=== PATIENT | female | born 1935 | race Hispanic/Latino ===

== ENCOUNTER 2017-05-29 09:26 | Emergency (ER) | payer MEDICARE, OTHER ==
[2017-05-29 09:31] VITALS: BMI 20.3
[2017-05-29 09:46] VITALS: TEMP 97.7
--- NOTE | 2017-05-29 09:50 | ED PDOC ---
Arrival/HPI - General Historian: Patient, Spouse - History of Present Illness Time/Duration: Other (6 days) Quality: Aching Context: Home - General Chief Complaint: Trauma Time Seen by Provider: 05/29/17 09:46 - History of Present Illness Narrative History of Present Illness (Text): 05/29/17 09:47 This 81 yo female with pmh osteopenia, htn,mild dementia (as per ) presents, to this ED c/o back pain x 6 days. stated patient had hit her left side face during the fall. Patient stated she tripped and fell backwards. Denies [place], diplopia, dysarthria, dysphagia, sob, cp, /GI incontinence, saddle anesthesia, weakness, paresthesias, hip pain, knee pain, neck pain, ankle pain, urinary retention, or abnormal gait. (Nickie Simmons) Past Medical History - Provider Review Nursing Documentation Reviewed: Yes - Past History Past History: Non-Contributing - Infectious Disease Hx of Infectious Diseases: None - Tetanus Immunization Tetanus Immunization: Unknown - Cardiac Hx Cardiac Disorders: Yes Hx Hypertension: Yes - Pulmonary Hx Respiratory Disorders: No - Neurological Hx Neurological Disorder: No - HEENT Hx HEENT Disorder: No - Renal Hx Renal Disorder: No - Endocrine/Metabolic Hx Endocrine Disorders: Yes Hx Hyperthyroidism: Yes - Hematological/Oncological Hx Blood Disorders: No - Integumentary Hx Dermatological Disorder: No - Musculoskeletal/Rheumatological Hx Musculoskeletal Disorders: Yes Hx Falls: Yes (last month and last week) - Gastrointestinal Hx Gastrointestinal Disorders: No - Genitourinary/Gynecological Hx Genitourinary Disorders: No - Psychiatric Hx Psychophysiologic Disorder: No Hx Depression: No Hx Emotional Abuse: No Hx Physical Abuse: No Hx Substance Use: No - Surgical History Hx Appendectomy: Yes - Anesthesia Hx Anesthesia: Yes Hx Anesthesia Reactions: No Hx Malignant Hyperthermia: No - Suicidal Assessment Feels Threatened In Home Enviroment: No Family/Social History - Physician Review Nursing Documentation Reviewed: Yes Family/Social History: No Known Family HX Smoking Status: Never Smoked Hx Alcohol Use: No Hx Substance Use: No Hx Substance Use Treatment: No Allergies/Home Meds Allergies/Adverse Reactions: Allergies No Known Allergies Allergy (Verified 05/29/17 09:31) Home Medications: Home Meds Medication Instructions Recorded Confirmed Amlodipine Besylate [Norvasc] 10 mg PO DAILY 12/05/12 05/29/17 Aspirin [Aspirin Children's] 81 mg PO DAILY 12/05/12 05/29/17 Calcium Carbonate/Vitamin D 1 tab PO DAILY 12/05/12 05/29/17 [Calcium + D 600 mg-200 Iu] Levothyroxine Sodium [Synthroid] 0.1 mg PO DAILY 12/05/12 05/29/17 Multivitamin and Minerals1 1 tab PO DAILY 12/05/12 05/29/17 [Centrum] Simvastatin 20 mg PO DAILY 12/05/12 05/29/17 Lisinopril [Zestril] 2.5 mg PO DAILY 05/29/17 05/29/17 Review of Systems - Review of Systems Constitutional: Normal. absent: Fatigue, Weight Change, Fevers, Night Sweats Eyes: Normal ENT: Normal Respiratory: Normal. absent: SOB, Cough Cardiovascular: Normal. absent: Chest Pain, Palpitations Gastrointestinal: Normal. absent: Abdominal Pain, Nausea, Vomiting Genitourinary Female: Normal. absent: Dysuria, Frequency, Hematuria, Vaginal Bleeding, Vaginal Discharge Musculoskeletal: Back Pain. absent: Arthralgias, Neck Pain, Joint Swelling, Myalgias Skin: Normal. absent: Rash, Laceration Neurological: Normal. absent: Headache, Dizziness, Focal Weakness, Gait Changes , Speech Changes, Facial Droop, Disequilibrium, Seizure Endocrine: Normal Hemo/Lymphatic: Normal Psychiatric: Normal Physical Exam Temperature: Afebrile Blood Pressure: Normal Pulse: Regular Respiratory Rate: Normal Appearance: Positive for: Well-Appearing, Non-Toxic, Comfortable Pain Distress: None Mental Status: Positive for: Alert and Oriented X 3 - Systems Exam Head: Present: Atraumatic, Normocephalic, Other ((+) small left cheek bruise. No raccoon sign. no perdue sign) Pupils: Present: PERRL, Other (no hyphema) Extroacular Muscles: Present: EOMI. No: Entrapment Conjunctiva: Present: Normal Ears: Present: Normal, NORMAL TM, Normal Canal, Other (No hemotympanum). No: Erythema, TM Bulging, TM Perf Mouth: Present: Moist Mucous Membranes Pharnyx: Present: Normal. No: ERYTHEMA, EXUDATE Nose (External): Present: Atraumatic Nose (Internal): Present: Normal Inspection Neck: Present: Normal Range of Motion. No: Meningeal Signs Respiratory/Chest: Present: Clear to Auscultation, Good Air Exchange. No: Respiratory Distress, Accessory Muscle Use Cardiovascular: Present: Regular Rate and Rhythm, Normal S1, S2. No: Murmurs Abdomen: Present: Normal Bowel Sounds. No: Tenderness, Distention, Peritoneal Signs Back: Present: Normal Inspection. No: CVA Tenderness, Midline Tenderness, Paraspinal Tenderness, Pain with Leg Raise Upper Extremity: Present: Normal Inspection, Normal ROM, NORMAL PULSES, Neurovascularly Intact, Capillary Refill < 2s. No: Cyanosis, Edema Lower Extremity: Present: Normal Inspection, NORMAL PULSES, Normal ROM. No: Edema, CALF TENDERNESS Neurological: Present: GCS=15, CN II-XII Intact, Speech Normal, Motor Func Grossly Intact, Normal Sensory Function, Normal Cerebellar Funct, Gait Normal, Memory Normal Skin: Present: Warm, Dry, Normal Color. No: Rashes Psychiatric: Present: Alert, Oriented x 3, Normal Insight, Normal Concentration Vital Signs Temp Pulse Resp BP Pulse Ox 05/29/17 09:39 97.7 F 69 18 117/69 95 Medical Decision Making Re-evaluation Time: 11:56 Reassessment Condition: Re-examined, Improved - Lab Interpretations I have reviewed the lab results: Yes Interpretation: No clinic. lab abnormalty ED Course and Treatment: I was available for consultation during PA evaluation. The chart was reviewed by me, and I agree with disposition. The documented history was done by the physician call box wirer. The documented physical exam was done by the physician call box wirer. The documented procedures were done by the physician call box wirer. (Shaq Martinez) 05/29/17 11:49 Patient came c/o back pain x 6 days after a mechanical fall. Patient denies other complains, except for left facial bruise. is at bedside. CT head was negative. CT L-Spine demonstrates a lumbar spine Fx. Patient prefers out-patient treatment and follow up. I spoke with patient and regarding Tylenol with codeine could cause drowsiness, and put patient at higher risk of following. Patient and stated they will take pain medication when really necessary. (Nickie Simmons) - Lab Interpretations Lab Results: Lab Results 05/29/17 11:05: Urine Color Yellow, Urine Appearance Clear, Urine pH 7.5, Ur Specific [place] 1.010, Urine Protein Negative, Urine Glucose (UA) Negative, Urine Ketones Negative, Urine Blood Small H, Urine Nitrate Negative, Urine Bilirubin Negative, Urine Urobilinogen 0.2, Ur Leukocyte Esterase Negative, Urine RBC Pending, Urine WBC Pending - RAD Interpretation Narrative RAD Interpretations (Text): 05/29/17 11:12 Accession No. : [id number] Patient Name / ID : ALYSSA HUMPHREY / [id number] Exam Date : 05/29/2017 10:09:30 ( Approved ) Study Comment : Sex / Age : F / 81Y Creator : Manpreet Bonilla MD Dictator : Manpreet Bonilla MD Contract Engineer : [employer] Department Chair : Manpreet Bonilla MD Approver2 : Report Date : 05/29/2017 11:04:36 My Comment : PROCEDURE: CT Lumbar Spine without contrast HISTORY: pain s/p fall COMPARISON: None. TECHNIQUE: Axial computed tomography images were obtained of the lumbar spine without the use of intravenous contrast. Coronal and sagittal reformatted images were created and reviewed. Radiation dose: Total exam DLP = 426.65 mGy-cm. This CT exam was performed using one or more of the following dose reduction techniques: Automated exposure control, adjustment of the mA and/or kV according to patient size, and/or use of iterative reconstruction technique. FINDINGS: VERTEBRAE: There is minimal compression deformity of the superior L1 vertebral endplate. There is mild retropulsion of the posterior rim of the superior L1 vertebral endplate, asymmetrically towards the right side. There is no evidence of epidural hemorrhage. The remaining vertebral bodies are maintained in height. There is marked dextroscoliotic curvature of the lumbar spine. There is no listhesis evident. DISCS/SPINAL CANAL/NEURAL FORAMINA: L1-2: Unremarkable. L2-3: Asymmetric narrowing of left side of the disc space in conjunction with scoliotic deformity. No disc bulge or herniation. Unilateral left bony neural foraminal stenosis. L3-4: Asymmetric narrowing of the left side of the intervertebral disc space in conjunction with scoliotic deformity. Mild diffuse disc bulge. No focal herniation. No central spinal stenosis. Unilateral left bony neural foraminal stenosis. L4-5: Asymmetric narrowing of the right side of the intervertebral disc space with extensive subchondral sclerosis asymmetrically towards the right side. Diffuse disc bulge. No focal herniation. No central spinal stenosis. Right bony neural foraminal stenosis. L5-S1: Mild diffuse disc bulge. Disc space asymmetrically narrowed towards the right side. Mild right neural foraminal stenosis. No central spinal stenosis. PARASPINAL SOFT TISSUES: Unremarkable. OTHER FINDINGS: None. IMPRESSION: Mild superior L1 vertebral endplate compression deformity with bony retropulsion not resulting in farhan central spinal stenosis. Indeterminate age but possibly acute. No other fracture. Severe scoliotic deformity. Multilevel disc bulge and neural foraminal stenosis without central spinal stenosis. 05/29/17 11:12 Accession No. : [id number] Patient Name / ID : ALYSSA HUMPHREY / [id number] Exam Date : 05/29/2017 10:05:05 ( Approved ) Study Comment : Sex / Age : F / 81Y Creator : Maulik Owens MD Dictator : Maulik Owens MD Contract Engineer : [employer] Department Chair : Maulik Owens MD Approver2 : Report Date : 05/29/2017 10:25:48 My Comment : PROCEDURE: CT HEAD WITHOUT CONTRAST. HISTORY: head injury/pain COMPARISON: 04/11/2016 TECHNIQUE: Axial computed tomography images were obtained through the head/brain without intravenous contrast. Radiation dose: Total exam DLP = 1112 mGy-cm. This CT exam was performed using one or more of the following dose reduction techniques: Automated exposure control, adjustment of the mA and/or kV according to patient size, and/or use of iterative reconstruction technique. FINDINGS: HEMORRHAGE: No intracranial hemorrhage. BRAIN: No mass effect or edema. Moderate atrophy. Mild chronic microvascular changes VENTRICLES: Unremarkable. No hydrocephalus. CALVARIUM: Unremarkable. PARANASAL SINUSES: Unremarkable as visualized. No significant inflammatory changes. MASTOID AIR CELLS: Unremarkable as visualized. No inflammatory changes. OTHER FINDINGS: None. IMPRESSION: No acute findings (Nickie Simmons) Radiology Orders: 05/29/17 09:46 HEAD W/O CONTRAST [CT] Stat 05/29/17 09:47 LUMBAR SPINE W/O CONTRAST [CT] Stat Disposition/Present on Arrival - Present on Arrival Any Indicators Present on Arrival: No History of DVT/PE: No History of Uncontrolled Diabetes: No Urinary Catheter: No History of Decub. Ulcer: No History Surgical Site Infection Following: None - Disposition Have Diagnosis and Disposition been Completed?: Yes Disposition Time: 12:00 Patient Plan: Discharge - Disposition Diagnosis: Lumbar compression fracture Disposition: HOME/ ROUTINE Condition: GOOD Discharge Instructions (ExitCare): Vertebral Compression Fracture (ED) Additional Instructions: Call private doctor for follow up visit in 1-2 days. Also call Orthopedist for revaluation. Take medication as instructed with food. Return to emergency if symptoms worsen. Prescriptions: Acetaminophen with Codeine [Tylenol with Codeine #3 Tablet] 1 each PO Q6H PRN # 20 tablet PRN Reason: Pain, Severe (8-10) Referrals: Stella Gil MD [Staff Provider] - Follow up with primary Rob Brunson MD [Staff Provider] - Follow up with primary Forms: [email or web address] ([place])
--- NOTE | 2017-05-29 10:27 | CT ---
PROCEDURE: CT HEAD WITHOUT CONTRAST. HISTORY: head injury/pain COMPARISON: 04/11/2016 TECHNIQUE: Axial computed tomography images were obtained through the head/brain without intravenous contrast. Radiation dose: Total exam DLP = 1112 mGy-cm. This CT exam was performed using one or more of the following dose reduction techniques: Automated exposure control, adjustment of the mA and/or kV according to patient size, and/or use of iterative reconstruction technique. FINDINGS: HEMORRHAGE: No intracranial hemorrhage. BRAIN: No mass effect or edema. Moderate atrophy. Mild chronic microvascular changes VENTRICLES: Unremarkable. No hydrocephalus. CALVARIUM: Unremarkable. PARANASAL SINUSES: Unremarkable as visualized. No significant inflammatory changes. MASTOID AIR CELLS: Unremarkable as visualized. No inflammatory changes. OTHER FINDINGS: None. IMPRESSION: No acute findings
--- NOTE | 2017-05-29 11:06 | CT ---
PROCEDURE: CT Lumbar Spine without contrast HISTORY: pain s/p fall COMPARISON: None. TECHNIQUE: Axial computed tomography images were obtained of the lumbar spine without the use of intravenous contrast. Coronal and sagittal reformatted images were created and reviewed. Radiation dose: Total exam DLP = 426.65 mGy-cm. This CT exam was performed using one or more of the following dose reduction techniques: Automated exposure control, adjustment of the mA and/or kV according to patient size, and/or use of iterative reconstruction technique. FINDINGS: VERTEBRAE: There is minimal compression deformity of the superior L1 vertebral endplate. There is mild retropulsion of the posterior rim of the superior L1 vertebral endplate, asymmetrically towards the right side. There is no evidence of epidural hemorrhage. The remaining vertebral bodies are maintained in height. There is marked dextroscoliotic curvature of the lumbar spine. There is no listhesis evident. DISCS/SPINAL CANAL/NEURAL FORAMINA: L1-2: Unremarkable. L2-3: Asymmetric narrowing of left side of the disc space in conjunction with scoliotic deformity. No disc bulge or herniation. Unilateral left bony neural foraminal stenosis. L3-4: Asymmetric narrowing of the left side of the intervertebral disc space in conjunction with scoliotic deformity. Mild diffuse disc bulge. No focal herniation. No central spinal stenosis. Unilateral left bony neural foraminal stenosis. L4-5: Asymmetric narrowing of the right side of the intervertebral disc space with extensive subchondral sclerosis asymmetrically towards the right side. Diffuse disc bulge. No focal herniation. No central spinal stenosis. Right bony neural foraminal stenosis. L5-S1: Mild diffuse disc bulge. Disc space asymmetrically narrowed towards the right side. Mild right neural foraminal stenosis. No central spinal stenosis. PARASPINAL SOFT TISSUES: Unremarkable. OTHER FINDINGS: None. IMPRESSION: Mild superior L1 vertebral endplate compression deformity with bony retropulsion not resulting in farhan central spinal stenosis. Indeterminate age but possibly acute. No other fracture. Severe scoliotic deformity. Multilevel disc bulge and neural foraminal stenosis without central spinal stenosis.
[2017-05-29 11:41] LABS: PH,URINE 7.5 (4.7-8.0); URINE BILIRUBIN NEGATIVE (NEGATIVE); URINE BLOOD SMALL (NEGATIVE); URINE GLUCOSE (UA) NEGATIVE (NEGATIVE); URINE LEUKOCYTE ESTERASE NEGATIVE Leu/uL (NEGATIVE); URINE NITRATE NEGATIVE (NEGATIVE); URINE PROTEIN NEGATIVE mg/dL (<30 mg/dL); URINE UROBILINOGEN 0.2 E.U./dL (<1 E.U./dL)
[2017-05-29 11:45] LABS: URINE APPEARANCE CLEAR (CLEAR); URINE COLOR YELLOW (YELLOW)
[2017-05-29 12:07] LABS: URINE BACTERIA SMALL (NEG); URINE EPITHELIAL CELLS 0 - 2 /hpf (0-5); URINE WBC 0 - 2 /hpf (0-6)
[2017-05-29 22:24] VITALS: BP 124/80; PULSE 70; RESP 16; O2SAT 98
== END 2017-05-29 12:11 | disposition home or self-care (01) ==
LOC: ED 09:26
DX: S32.009A Unspecified fracture of unspecified lumbar vertebra, initial encounter for closed fracture (principal); W01.0XXA Fall on same level from slipping, tripping and stumbling without subsequent striking against object, initial encounter

== ENCOUNTER 2017-11-09 01:08 | Emergency (ER) | payer MEDICARE, OTHER ==
[2017-11-09 01:09] VITALS: BMI 20.3
[2017-11-09 01:26] VITALS: RESP 18; TEMP 97.1
--- NOTE | 2017-11-09 01:30 | ED PDOC ---
Arrival/HPI - General Chief Complaint: Altered Mental Status Time Seen by Provider: 11/09/17 01:20 Historian: Patient - History of Present Illness Narrative History of Present Illness (Text): 11/09/17 01:26 82 year old female, with past medical history of osteopenia, hypertension and mild dementia, presents to the Emergency department via EMS complaining of confusion tonight. Patient states she went out to take a walk in the evening but could not recall her home address to return to. Patient denies similar symptoms in the past. Patient currently denies any complaints. Patient denies any chest pain, shortness of breath, abdominal pain, fevers, chills, nausea, vomiting, diarrhea, trauma or any other complaints. Time/Duration: Prior to Arrival Symptom Onset: Gradual Symptom Course: Unchanged Context: Walking Past Medical History - Provider Review Nursing Documentation Reviewed: Yes - Past History Past History: Non-Contributing - Infectious Disease Hx of Infectious Diseases: None - Tetanus Immunization Tetanus Immunization: Unknown - Reproductive Menopause: Yes - Cardiac Hx Cardiac Disorders: Yes Hx Hypertension: Yes - Pulmonary Hx Respiratory Disorders: No - Neurological Hx Neurological Disorder: No - HEENT Hx HEENT Disorder: No - Renal Hx Renal Disorder: No - Endocrine/Metabolic Hx Endocrine Disorders: Yes Hx Hyperthyroidism: Yes - Hematological/Oncological Hx Blood Disorders: No - Integumentary Hx Dermatological Disorder: No - Musculoskeletal/Rheumatological Hx Musculoskeletal Disorders: Yes Hx Falls: Yes - Gastrointestinal Hx Gastrointestinal Disorders: No - Genitourinary/Gynecological Hx Genitourinary Disorders: No - Psychiatric Hx Psychophysiologic Disorder: No Hx Depression: No Hx Emotional Abuse: No Hx Physical Abuse: No Hx Substance Use: No - Surgical History Hx Appendectomy: Yes - Anesthesia Hx Anesthesia: Yes Hx Anesthesia Reactions: No Hx Malignant Hyperthermia: No - Suicidal Assessment Feels Threatened In Home Enviroment: No Family/Social History - Physician Review Nursing Documentation Reviewed: Yes Family/Social History: No Known Family HX Smoking Status: Never Smoked Hx Alcohol Use: No Hx Substance Use: No Hx Substance Use Treatment: No Allergies/Home Meds Allergies/Adverse Reactions: Allergies No Known Allergies Allergy (Verified 11/09/17 01:20) Home Medications: Home Meds Medication Instructions Recorded Confirmed Amlodipine Besylate [Norvasc] 10 mg PO DAILY 12/05/12 05/29/17 Aspirin [Aspirin Children's] 81 mg PO DAILY 12/05/12 05/29/17 Calcium Carbonate/Vitamin D 1 tab PO DAILY 12/05/12 05/29/17 [Calcium + D 600 mg-200 Iu] Levothyroxine Sodium [Synthroid] 0.1 mg PO DAILY 12/05/12 05/29/17 Multivitamin and Minerals1 1 tab PO DAILY 12/05/12 05/29/17 [Centrum] Simvastatin 20 mg PO DAILY 12/05/12 05/29/17 Lisinopril [Zestril] 2.5 mg PO DAILY 05/29/17 05/29/17 Review of Systems - Physician Review All systems were reviewed & negative as marked: Yes - Review of Systems Constitutional: Normal. absent: Fevers Eyes: Normal ENT: Normal Respiratory: Normal. absent: SOB Cardiovascular: Normal. absent: Chest Pain Gastrointestinal: Normal. absent: Abdominal Pain, Diarrhea, Nausea, Vomiting Genitourinary Female: Normal Musculoskeletal: Normal Skin: Normal Neurological: Normal Endocrine: Normal Hemo/Lymphatic: Normal Psychiatric: Normal Physical Exam Vital Signs Reviewed: Yes Vital Signs Temp Pulse Resp BP Pulse Ox 11/09/17 01:21 97.1 F L 61 18 127/69 99 Temperature: Afebrile Blood Pressure: Normal Pulse: Regular Respiratory Rate: Normal Appearance: Positive for: Well-Appearing, Non-Toxic, Comfortable, Other ( Friendly with repetitive verbalization. ) Pain Distress: None Mental Status: Positive for: Confused (mildly confused ) - Systems Exam Head: Present: Atraumatic, Normocephalic Pupils: Present: PERRL Extroacular Muscles: Present: EOMI Conjunctiva: Present: Normal Mouth: Present: Moist Mucous Membranes Neck: Present: Normal Range of Motion Respiratory/Chest: Present: Clear to Auscultation, Good Air Exchange. No: Respiratory Distress, Accessory Muscle Use Cardiovascular: Present: Regular Rate and Rhythm, Normal S1, S2. No: Murmurs Abdomen: Present: Normal Bowel Sounds. No: Tenderness, Distention, Peritoneal Signs Back: Present: Normal Inspection Upper Extremity: Present: Normal Inspection. No: Cyanosis, Edema Lower Extremity: Present: Normal Inspection. No: Edema Neurological: Present: GCS=15, CN II-XII Intact, Speech Normal Skin: Present: Warm, Dry, Normal Color. No: Rashes Psychiatric: Present: Alert, Normal Insight, Normal Concentration Medical Decision Making ED Course and Treatment: 11/09/17 01:32 Impression: 82 year old female presents to the Emergency department for confusion. Plan: -- Reassess and disposition Progress Notes: - Lab Interpretations Lab Results: 11/09/17 01:49 11/09/17 01:49 Lab Results 11/09/17 01:49: Sodium 140, Potassium 4.1, Chloride 104, Carbon Dioxide 25, Anion Gap 15, BUN 18, Creatinine 0.6 L, Est GFR ( Amer) > 60, Est GFR ( Non-Af Amer) > 60, Random Glucose 96, Calcium 9.4, Total Bilirubin 0.5, AST 26, ALT 27, Alkaline Phosphatase 64, Total Protein 6.9, Albumin 3.8, Globulin 3.0, Albumin/Globulin Ratio 1.3 11/09/17 01:49: WBC 8.0, RBC 4.10, Hgb 12.8, Hct 40.0, MCV 97.6, MCH 31.2, MCHC 32.0, RDW 13.8, Plt Count 223, MPV 11.7 H, Gran % 48.6 L, Lymph % (Auto) 27.8, [place] % (Auto) 21.7 H, Eos % (Auto) 1.7, Baso % (Auto) 0.2, Gran # 3.88, Lymph # 2.2, [place] # 1.7 H, Eos # 0.1, Baso # 0.02, Neutrophils % (Manual) Pending, Lymphocytes % (Manual) Pending, Monocytes % (Manual) Pending - RAD Interpretation Radiology Orders: 11/09/17 01:33 HEAD W/O CONTRAST [CT] Stat - Scribe Statement The provider has reviewed the documentation as recorded by the Scribe Norman Bertrand. All medical record entries made by the Scribe were at my direction and personally dictated by me. I have reviewed the chart and agree that the record accurately reflects my personal performance of the history, physical exam, medical decision making, and the department course for this patient. I have also personally directed, reviewed, and agree with the discharge instructions and disposition. Disposition/Present on Arrival - Present on Arrival Any Indicators Present on Arrival: No History of DVT/PE: No History of Uncontrolled Diabetes: No Urinary Catheter: No History of Decub. Ulcer: No History Surgical Site Infection Following: None - Disposition Have Diagnosis and Disposition been Completed?: Yes Diagnosis: Dementia Disposition: HOME/ ROUTINE Disposition Time: 03:00 Condition: STABLE Additional Instructions: see your doctor to consider further treatment for dementia. Forms: [employer] ([place])
[2017-11-09 02:28] LABS: BASO # 0.02 K/mm3 (0.0-2.0); BASO % 0.2 % (0.0-3.0); EOS # 0.1 (0.0-0.7); EOS % 1.7 % (1.5-5.0); GRAN # 3.88 (1.4-6.5); GRAN % 48.6 % (50.0-68.0); HEMOGLOBIN 12.8 g/dL (12.0-16.0); LYMPH # 2.2 (1.2-3.4); LYMPH % 27.8 % (22.0-35.0); MEAN CELL VOLUME 97.6 fl (80.0-105.0); MEAN CORPUSCULAR HEMOGLOBIN 31.2 pg (25.0-35.0); MEAN PLATELET VOLUME 11.7 fl (7.0-11.0); MONO # 1.7 (0.1-0.6); MONO % 21.7 % (1.0-6.0); PLATELET COUNT 223 10^3/uL (120.0-450.0); RED CELL DISTRIBUTION WIDTH 13.8 % (11.5-14.5)
[2017-11-09 02:32] LABS: ALB/GLOB RATIO 1.3 (1.1-1.8); ALBUMIN 3.8 g/dL (3.0-4.8); ALT/SGPT 27 U/L (7-56); AST/SGOT 26 U/L (14-36); BLOOD UREA NITROGEN 18 mg/dL (7-21); CALCIUM 9.4 mg/dL (8.4-10.5); GFR AFRICAN-AMERICAN > 60; GFR NON-AFRICAN AMERICAN > 60
--- NOTE | 2017-11-09 02:54 | CT ---
EXAM: CT Head Without Intravenous Contrast CLINICAL HISTORY: 82 years old, female; Signs and symptoms; Altered mental status/memory loss; Additional info: AMS TECHNIQUE: Axial computed tomography images of the head/brain without intravenous contrast. All CT scans at this facility use one or more dose reduction techniques, viz.: automated exposure control; ma/kV adjustment per patient size (including targeted exams where dose is matched to indication; i.e. head); or iterative reconstruction technique. Coronal and sagittal reformatted images were created and reviewed. COMPARISON: CT - HEAD W/O CONTRAST 2017-05-29 10:05 FINDINGS: Brain: Moderate atrophy. No intracranial hemorrhage. No mass. Minimal decreased attenuation within periventricular white matter. No definite edema. Ventricles: No hydrocephalus. Bones/joints: No acute fracture. Degenerative changes of temporomandibular joints. Soft tissues: Unremarkable. Vasculature: Minimal atherosclerotic disease of intracranial arteries. Sinuses: Mild mucosal thickening of LEFT maxillary sinus. Scattered minimal mucosal thickening of ethmoid sinuses. RIGHT maxillary retention cyst. Mastoid air cells: No mastoid effusion. Orbits: Unremarkable as visualized. IMPRESSION: 1. Nonspecific white matter changes. Acute infarction may be CT occult within first 24 hours. If a focal deficit persists, consider followup CT or MRI for further evaluation. 2. Incidental/non-acute findings are described above.
[2017-11-09 04:17] LABS: BASOPHIL 1 % (0.0-1.0); LYMPHOCYTE 34 % (22.0-35.0); MONOCYTE 19 % (1.0-6.0); NEUTROPHIL 46 % (50.0-70.0); PLATELET ESTIMATE NORMAL (NORMAL)
[2017-11-09 06:54] VITALS: BP 112/75; PULSE 60; O2SAT 96
== END 2017-11-09 08:42 | disposition home or self-care (01) ==
LOC: ED 01:08
DX: F03.90 Unspecified dementia, unspecified severity, without behavioral disturbance, psychotic disturbance, mood disturbance, and anxiety (principal); I10 Essential (primary) hypertension

== ENCOUNTER 2018-09-23 11:09 | Inpatient (IN) | payer MEDICARE, OTHER ==
[2018-09-23] MEDS ORDERED: Vancomycin 1gm in NS 250ml 1 GM/250 ML BAG IVPB STA (12:33)
[2018-09-23] MEDS ORDERED: Piperacillin/Tazobact 3.375 gm 100 ML IVPB STA (12:33)
[2018-09-23 12:56] LABS: BASO # 0.01 K/mm3 (0.0-2.0); BASO % 0.1 % (0.0-3.0); EOS % 0.3 % (1.5-5.0); GRAN # 6.44 (1.4-6.5); GRAN % 66.7 % (50.0-68.0); HEMOGLOBIN 11.2 g/dL (12.0-16.0); LYMPH # 1.3 (1.2-3.4); LYMPH % 13.8 % (22.0-35.0); MEAN CELL VOLUME 94.2 fl (80.0-105.0); MEAN CORPUSCULAR HEMOGLOBIN 29.6 pg (25.0-35.0); MEAN CORPUSCULAR HGB CONC 31.4 g/dl (31.0-37.0); MEAN PLATELET VOLUME 10.8 fl (7.0-11.0); MONO # 1.8 (0.1-0.6); MONO % 19.1 % (1.0-6.0); RBC 3.79 10^6/uL (3.5-6.1); WHITE BLOOD COUNT 9.7 10^3/uL (4.5-11.0)
[2018-09-23 13:08] LABS: ALB/GLOB RATIO 1.1 (1.1-1.8); ALBUMIN 3.5 g/dL (3.0-4.8); ALT/SGPT 26 U/L (7-56); AST/SGOT 19 U/L (14-36); BLOOD UREA NITROGEN 17 mg/dL (7-21); CALCIUM 9.1 mg/dL (8.4-10.5); GFR NON-AFRICAN AMERICAN > 60
--- NOTE | 2018-09-23 13:29 | ED PDOC ---
Arrival/HPI - General Chief Complaint: Trauma Time Seen by Provider: 09/23/18 11:46 Historian: Patient - History of Present Illness Narrative History of Present Illness (Text): 09/23/18 16:03 83yr old female presents today with 2 day history of right foot pain. pt states she tripped and fell 2 days ago and scrapped the right great toe. pt states since yesterday she noticed redness to the foot and ankle with increasing swelling. pt c/o pain only with palpation. denies numbness, weakness, tingling in the extremity. unsure of last tetanus shot. no medications taken at home. no other complaints. Past Medical History - Provider Review Nursing Documentation Reviewed: Yes - Travel History Have you recently traveled outside [place] w/in the past 3 mons?: No - Past History Past History: Non-Contributing - Infectious Disease Hx of Infectious Diseases: None - Tetanus Immunization Tetanus Immunization: Unknown - Cardiac Hx Cardiac Disorders: Yes Hx Hypertension: Yes - Pulmonary Hx Respiratory Disorders: No - Neurological Hx Neurological Disorder: No - HEENT Hx HEENT Disorder: No - Renal Hx Renal Disorder: No - Endocrine/Metabolic Hx Endocrine Disorders: Yes Hx Hyperthyroidism: Yes - Hematological/Oncological Hx Blood Disorders: No - Integumentary Hx Dermatological Disorder: No - Musculoskeletal/Rheumatological Hx Musculoskeletal Disorders: Yes Hx Falls: Yes - Gastrointestinal Hx Gastrointestinal Disorders: No - Genitourinary/Gynecological Hx Genitourinary Disorders: No - Psychiatric Hx Psychophysiologic Disorder: No Hx Depression: No Hx Emotional Abuse: No Hx Physical Abuse: No Hx Substance Use: No - Surgical History Hx Appendectomy: Yes - Anesthesia Hx Anesthesia: Yes Hx Anesthesia Reactions: No Hx Malignant Hyperthermia: No - Suicidal Assessment Feels Threatened In Home Enviroment: No Family/Social History - Physician Review Nursing Documentation Reviewed: Yes Family/Social History: Unknown Family HX Smoking Status: Never Smoked Hx Alcohol Use: No Hx Substance Use: No Hx Substance Use Treatment: No Allergies/Home Meds Allergies/Adverse Reactions: Allergies No Known Allergies Allergy (Verified 11/09/17 01:20) Home Medications: Home Meds Medication Instructions Recorded Confirmed Calcium Carb/Vit D3/Minerals 1 tab PO DAILY 09/23/18 09/23/18 [Calcium 600+D Plus Minerals Tb] Levothyroxine [Synthroid] 1 tab PO DAILY 09/23/18 09/23/18 Lisinopril [Zestril] 1 tab PO DAILY 09/23/18 09/23/18 Simvastatin [Zocor] 1 tab PO DAILY 09/23/18 09/23/18 amLODIPine [Norvasc] 1 tab PO DAILY 09/23/18 09/23/18 Review of Systems - Review of Systems Constitutional: absent: Fatigue, Fevers Respiratory: absent: SOB, Cough Cardiovascular: absent: Chest Pain, Palpitations Gastrointestinal: absent: Abdominal Pain, Nausea, Vomiting Musculoskeletal: Arthralgias Skin: Cellulitis Neurological: absent: Headache, Dizziness Psychiatric: absent: Anxiety, Depression Physical Exam Vital Signs Reviewed: Yes Vital Signs Temp Pulse Resp BP Pulse Ox 09/23/18 11:15 98.3 F 74 18 119/48 L 96 Temperature: Afebrile Blood Pressure: Normal Pulse: Regular Respiratory Rate: Normal Appearance: Positive for: Well-Appearing, Non-Toxic, Comfortable Pain Distress: None Mental Status: Positive for: Alert and Oriented X 3 - Systems Exam Head: Present: Atraumatic Mouth: Present: Moist Mucous Membranes Neck: Present: Normal Range of Motion Respiratory/Chest: Present: Clear to Auscultation, Good Air Exchange. No: Respiratory Distress, Accessory Muscle Use Cardiovascular: Present: Regular Rate and Rhythm, Normal S1, S2. No: Murmurs Upper Extremity: Present: Normal ROM Lower Extremity: Present: CALF TENDERNESS, NORMAL PULSES, Normal ROM, Tenderness, Swelling, Erythema, Neurovascularly Intact, Capillary Refill < 2 s, Other (there is a superficial abrasion noted over the dorsal aspect of the great toe; + erythema of dorsal aspect of right foot and distal 1/3 of lower leg. sensation and distal pulses intact. cap refill <2. ) Neurological: Present: GCS=15, Speech Normal Skin: Present: Warm, Dry, Normal Color Psychiatric: Present: Alert, Oriented x 3 Medical Decision Making ED Course and Treatment: 09/23/18 16:21 83yr old female with right leg cellulitis x 2 days. cbc; wnl cmp; wnl cxr; no infiltrate tetanus updated. xray right foot; no fracture xray right ankle; no fracture head ct; FINDINGS: HEMORRHAGE: No intracranial hemorrhage. BRAIN: No mass effect or edema. Atrophic changes. VENTRICLES: Unremarkable. No hydrocephalus. CALVARIUM: Unremarkable. PARANASAL SINUSES: Unremarkable as visualized. No significant inflammatory changes. MASTOID AIR CELLS: Unremarkable as visualized. No inflammatory changes. OTHER FINDINGS: None. IMPRESSION: No acute hemorrhage. blood cultures pending vanco and zosyn started IV i discussed case with dr. giron in depth; accepts admission. requesting co nsult ID and podiatry. pt seen and evaluated by dr. Roman. impression; cellulitis, foot/leg admit to med/surg - Lab Interpretations Lab Results: 09/23/18 12:40 09/23/18 12:40 Lab Results 09/23/18 12:40: WBC 9.7, RBC 3.79, Hgb 11.2 L D, Hct 35.7 L, MCV 94.2, MCH 29.6, MCHC 31.4, RDW 15.0 H, Plt Count 140, MPV 10.8, Gran % 66.7, Lymph % (Auto) 13.8 L, [place] % (Auto) 19.1 H, Eos % (Auto) 0.3 L, Baso % (Auto) 0.1, Gran # 6.44, Lymph # (Auto) 1.3, [place] # (Auto) 1.8 H, Eos # (Auto) 0.0, Baso # (Auto) 0.01 09/23/18 12:40: Sodium 139, Potassium 3.8, Chloride 105, Carbon Dioxide 28, Anion Gap 9 L, BUN 17, Creatinine 0.6 L, Est GFR ( Amer) > 60, Est GFR (Non-Af Amer) > 60, Random Glucose 109, Calcium 9.1, Total Bilirubin 0.8, AST 19, ALT 26, Alkaline Phosphatase 73, Total Protein 6.7, Albumin 3.5, Globulin 3.2, Albumin/Globulin Ratio 1.1 - RAD Interpretation Radiology Orders: 09/23/18 12:30 CHEST PORTABLE [RAD] Stat 09/23/18 12:31 ANKLE RIGHT 3 VIEWS ROUTINE [RAD] Stat FOOT RIGHT 3 VIEWS ROUTINE [RAD] Stat DUPLEX LOWER EXTRM VEIN RIGHT [US] Stat 09/23/18 12:32 HEAD W/O CONTRAST [CT] Stat - Medication Orders Current Medication Orders: Vancomycin HCl (Vancomycin 1gm) 1 gm in 250 mls @ 167 mls/hr IVPB STAT STA; Protocol Stop: 09/23/18 14:02 Discontinued Medications Piperacillin Sod/Tazobactam Sod (Zosyn 3.375 In Ns 100ml) 100 mls @ 200 mls/hr IVPB STAT STA; Protocol Stop: 09/23/18 13:02 Last Admin: 09/23/18 13:24 Dose: 200 mls/hr eMAR Start Stop Document 09/23/18 13:24 GMD (Rec: 09/23/18 13:24 GMD [id number]) Intravenous Solution Start Date 09/23/18 Start Time 13:24 End Date 09/23/18 End time 13:54 Total Infusion Time 30 Disposition/Present on Arrival - Present on Arrival Any Indicators Present on Arrival: No History of DVT/PE: No History of Uncontrolled Diabetes: No Urinary Catheter: No History of Decub. Ulcer: No History Surgical Site Infection Following: None - Disposition Have Diagnosis and Disposition been Completed?: Yes Diagnosis: Cellulitis of foot Disposition: HOSPITALIZED Disposition Time: 13:28 Patient Plan: Admission Patient Problems: Current Active Problems Problem Status Onset Cellulitis of foot Acute Condition: FAIR
--- NOTE | 2018-09-23 14:24 | CT ---
Date of service: 09/23/2018 PROCEDURE: CT HEAD WITHOUT CONTRAST. HISTORY: fall COMPARISON: None available. TECHNIQUE: Axial computed tomography images were obtained through the head/brain without intravenous contrast. Radiation dose: Total exam DLP = 1053.09 mGy-cm. This CT exam was performed using one or more of the following dose reduction techniques: Automated exposure control, adjustment of the mA and/or kV according to patient size, and/or use of iterative reconstruction technique. FINDINGS: HEMORRHAGE: No intracranial hemorrhage. BRAIN: No mass effect or edema. Atrophic changes. VENTRICLES: Unremarkable. No hydrocephalus. CALVARIUM: Unremarkable. PARANASAL SINUSES: Unremarkable as visualized. No significant inflammatory changes. MASTOID AIR CELLS: Unremarkable as visualized. No inflammatory changes. OTHER FINDINGS: None. IMPRESSION: No acute hemorrhage.
--- NOTE | 2018-09-23 14:49 | RAD ---
Date of service: 09/23/2018 HISTORY: cough and foot infection COMPARISON: 10/28/2015 FINDINGS: LUNGS: No active pulmonary disease. PLEURA: No significant pleural effusion identified, no pneumothorax apparent. CARDIOVASCULAR: Aortic calcification Normal cardiac size. No pulmonary vascular congestion. OSSEOUS STRUCTURES: No significant abnormalities. VISUALIZED UPPER ABDOMEN: Normal. OTHER FINDINGS: None. IMPRESSION: No active disease.
--- NOTE | 2018-09-23 14:50 | RAD ---
Date of service: 09/23/2018 PROCEDURE: Right Ankle Radiographs. HISTORY: fall/ infection COMPARISON: None available. FINDINGS: BONES: Normal. No fracture. JOINTS: Normal. No osteoarthritis. Ankle mortise maintained. Talar dome intact SOFT TISSUES: Normal. OTHER FINDINGS: None. IMPRESSION: Negative study
--- NOTE | 2018-09-23 14:51 | RAD ---
Date of service: 09/23/2018 PROCEDURE: Right Foot Radiographs. HISTORY: foot pain COMPARISON: None. FINDINGS: BONES: Mild to moderate hallux valgus deformity JOINTS: Normal. SOFT TISSUES: Normal. OTHER FINDINGS: None. IMPRESSION: Mild to moderate hallux valgus deformity
[2018-09-23] MEDS ORDERED: TDAP Vaccine 0.5 mL Syr IM ONE (14:58)
--- NOTE | 2018-09-23 17:02 | US ---
PROCEDURE: Right lower extremity venous US HISTORY: Leg pain and swelling. Evaluate for DVT. PHYSICIAN(S): Manpreet Zuleta M.D. TECHNIQUE: Duplex sonography and color-flow Doppler with graded compression were used to evaluate the deep venous system of the right lower extremity. FINDINGS: The visualized deep venous system of the right lower extremity is sonographically normal and compressible. Normal waveforms and augmentation are seen. There is no sonographic evidence for deep venous thrombosis in the visualized segments of the right lower extremity. IMPRESSION: 1. No sonographic evidence for deep venous thrombosis in the visualized segments of the right lower extremity.
--- NOTE | 2018-09-23 19:17 | CP.PCM.CON ---
<Meño Rayo - Last Filed: 09/23/18 19:01> History of Present Illness - History of Present Illness History of Present Illness: Podiatry consult note for attending Dr. Melissa: 82 year old female patient with PMH of osteopenia, hypertension and mild dementia, seen and evaluated in the Emergency department pain, redness and swelling in her right foot and ankle. Patient states that 3 days ago she tripped then her right foot and ankle started to get painful, swollen and red. Patient states that her right lower extremity got worse in the previous 3 days. Patient accompanied at the bedside by her daughter who states that the patient is poor historian and some times she provides inaccurate informations. She states that since yesterday the patient has a funny walking. Patient denies numbness, weakness, tingling in the right lower extremity. Patient denies any chest pain, shortness of breath, abdominal pain, fevers, chills, nausea, vomiting, diarrhea, trauma recently. She denies any other pedal complaint recently. PMH: Osteopenia, hypertension and mild dementia PSH: Appendectomy Allergies: NKDA. Social Hx: Denies smoking, EtOH use or Illicit drug use. Review of Systems - Review of Systems Review of Systems: As per HPI Past Patient History - Infectious Disease Hx of Infectious Diseases: None - Tetanus Immunizations Tetanus Immunization: Unknown - Past Social History Smoking Status: Never Smoked - CARDIAC Hx Cardiac Disorders: Yes Hx Hypertension: Yes - PULMONARY Hx Respiratory Disorders: No - NEUROLOGICAL Hx Neurological Disorder: No - HEENT Hx HEENT Problems: No - RENAL Hx Chronic Kidney Disease: No - ENDOCRINE/METABOLIC Hx Endocrine Disorders: Yes Hx Hyperthyroidism: Yes - HEMATOLOGICAL/ONCOLOGICAL Hx Blood Disorders: No - INTEGUMENTARY Hx Dermatological Problems: No - MUSCULOSKELETAL/RHEUMATOLOGICAL Hx Musculoskeletal Disorders: Yes Hx Falls: Yes - GASTROINTESTINAL Hx Gastrointestinal Disorders: No - GENITOURINARY/GYNECOLOGICAL Hx Genitourinary Disorders: No - PSYCHIATRIC Hx Psychophysiologic Disorder: No Hx Depression: No Hx Emotional Abuse: No Hx Physical Abuse: No Hx Substance Use: No - SURGICAL HISTORY Hx Appendectomy: Yes - ANESTHESIA Hx Anesthesia: Yes Hx Anesthesia Reactions: No Hx Malignant Hyperthermia: No Meds Allergies/Adverse Reactions: Allergies Allergy/AdvReac Type Severity Reaction Status Date / Time No Known Allergies Allergy Verified 11/09/17 01:20 Physical Exam - Constitutional Appears: Non-toxic - Head Exam Head Exam: ATRAUMATIC, NORMOCEPHALIC - Extremities Exam Additional comments: B/L LE focused exam: Vasc: DP 2/4, PT 1/4 due to perimalleolar edema. Cap refill < 3 sec to all digits. Temp gradient warm to cool from proximal to distal on the left side and warm to warm from proximal to distal. Right moderate non pitting perimalleolar edema. Erythema noted i the R LE extending up above the ankle joint. Superficial varicosities noted on the left LE. Neuro: Gross and protective sensations are intact b/l. Derm: Bruising noted to the R 1st and 2nd toes. Erythema noted i the R LE extending up above the ankle joint. No open lesion. no drainage b/l. MSK: Pain on palpating theRight perimalleolar area. Pain with ROM of the R foot and ankle. Pain on palpating the R foot. Muscle power intact to all groups 5/5 b/l. - Neurological Exam Neurological exam: Alert Results - Vital Signs Recent Vital Signs: Last Vital Signs Temp 98.3 F 09/23/18 11:15 Pulse 67 09/23/18 17:00 Resp 18 09/23/18 17:00 BP 114/61 09/23/18 17:00 Pulse Ox 96 09/23/18 17:00 - Labs Result Diagrams: 09/23/18 12:40 09/23/18 12:40 Labs: Laboratory Results - last 24 hr 09/23/18 09/23/18 12:40 12:40 WBC 9.7 RBC 3.79 Hgb 11.2 L D Hct 35.7 L MCV 94.2 MCH 29.6 MCHC 31.4 RDW 15.0 H Plt Count 140 MPV 10.8 Gran % 66.7 Lymph % (Auto) 13.8 L [place] % (Auto) 19.1 H Eos % (Auto) 0.3 L Baso % (Auto) 0.1 Gran # 6.44 Lymph # (Auto) 1.3 [place] # (Auto) 1.8 H Eos # (Auto) 0.0 Baso # (Auto) 0.01 Sodium 139 Potassium 3.8 Chloride 105 Carbon Dioxide 28 Anion Gap 9 L BUN 17 Creatinine 0.6 L Est GFR ( Amer) > 60 Est GFR (Non-Af Amer) > 60 Random Glucose 109 Calcium 9.1 Total Bilirubin 0.8 AST 19 ALT 26 Alkaline Phosphatase 73 Total Protein 6.7 Albumin 3.5 Globulin 3.2 Albumin/Globulin Ratio 1.1 Assessment & Plan - Assessment and Plan (Free Text) Assessment: 83 y/o F patient seen and evaluated in the bedside for Right foot and ankle pain, redness and swelling in her right foot and ankle. Plan: - Patient seen and evaluated at the bedside in the ED with Dr. Melissa. - Plan discussed in details with attending dr. Melissa. - Charts, labs and vitals reviewed: Afebrile, no leukocytosis - R 3 views foot x-ray; official report Hallux valgus. - R3 views ankle x-ray; Official report no osseous anomalies. - R venous duplex; No evidence of DVT. - Ordered R LE CT scan. - Applied posterior splint to the RLE. - RICE protocol educated. - Patient will be admitted by the primary service. - Thank you for consulting podiatry service. - Podiatry will continue to follow up the patient while in house. - Date & Time Date: 09/23/18 Time: 19:18 <Anyi Melissa - Last Filed: 09/27/18 15:13> Results - Vital Signs Recent Vital Signs: Last Vital Signs Temp 98.6 F 09/26/18 14:00 Pulse 65 09/26/18 14:00 Resp 18 09/26/18 14:00 BP 109/62 09/26/18 14:00 Pulse Ox 100 09/26/18 14:00 - Labs Result Diagrams: 09/26/18 07:20 09/26/18 07:20 Attending/Attestation - Attestation I have personally seen and examined this patient.: Yes I have fully participated in the care of the patient.: Yes I have reviewed all pertinent clinical information: Yes Notes (Text): 09/27/18 15:12 pt seen and evaluated in the ER with the resident; pt with severe edema and cellulitis of the right foot and ankle with pain; small ulcer to the hallux which is limited to skin breakdown; xrays reviewed CAT ordered; splint applied
[2018-09-23] MEDS ORDERED: Non Formulary Medication (Simvastatin [Zocor] 1 TAB) PO SCH (22:00)
[2018-09-24] MEDS: Vancomycin 1gm in NS 250ml 1 GM/250 ML BAG IVPB SCH ×3 (00:26→21:23)
[2018-09-24 01:10] VITALS: BMI 33.5
--- NOTE | 2018-09-24 06:26 | CP.PCM.HP ---
<Catrachita Judd - Last Filed: 09/24/18 18:25> History of Present Illness - History of Present Illness History of Present Illness: Please note patient is a poor historian; history as per EMR, and speaking to daughter Alis [phone] CC: some pain in my foot for 3 days HPI: 83yo female PMHx HTN, osteopenia, hypothyroidism, and dementia presents with right foot pain for 3 days. Patient reports she had a mechanical fall and tripped on the sidewalk when she hurt her right foot. As per daughter patient was walking with her and was unable to ambulate well and had trouble climbing her stairs at home. Daughter reported the patient's R foot was red, swollen and tender to touch and the decision was made to call EMS. Overnight patient had no acute events as per nursing. This AM she admitted to pain in her RLE when palpated but otherwise denied other complaints. ROS: admits: +RLE pain and swelling denies: fever, headache, chest pain, SOB, cough, abdominal pain, vomiting, bowel/bladder complaints PMHx: HTN, osteopenia, hypothyroidism and mild dementia PSurgHx: appendectomy, tonsillectomy Meds: pls see chart ALL: NKDA SocHx: Denies smoking, EtOH use or Illicit drug use PMD: Dr. Brunson Present on Admission - Present on Admission Any Indicators Present on Admission: No Review of Systems - Review of Systems Systems not reviewed;Unavailable: Dementia Past Patient History - Infectious Disease Hx of Infectious Diseases: None - Tetanus Immunizations Tetanus Immunization: Unknown - Past Social History Smoking Status: Never Smoked - CARDIAC Hx Cardiac Disorders: No Hx Angina: No Hx Cardia Arrhythmia: No Hx Circulatory Problems: No Hx Congestive Heart Failure: No Hx Heart Murmur: No Hx Heart Transplant: No Hx Hypercholesterolemia: No Hx Hypertension: No Hx Internal Defibrillator: No Hx Mitral Valve Prolapse: No Hx Pacemaker: No Hx Peripheral Edema: No Hx Peripheral Vascular Disease: No - PULMONARY Hx Respiratory Disorders: No Hx Asthma: No Hx Bronchitis: No Hx Chronic Obstructive Pulmonary Disease (COPD): No Hx Emphysema: No Hx Pneumonia: No Hx Respiratory Aspiration: No Hx Respiratory Tract Infection: No Hx Sleep Apnea: No Hx Tuberculosis: No - NEUROLOGICAL Hx Neurological Disorder: No Hx Alzheimer's Disease: No HX Cerebrovascular Accident: No Hx Dementia: No Hx Meningitis: No Hx Migraine: No Hx Parkinson's Disease: No Hx Seizures: No Hx Transient Ischemic Attacks (TIA): No - HEENT Hx HEENT Problems: No Hx Blind: No Hx Cataracts: No Hx Deafness: No Hx Difficulty Chewing: No Hx Epistaxis: No Hx Glaucoma: No Hx Macular Degeneration: No - RENAL Hx Chronic Kidney Disease: No Hx Dialysis: No Hx Kidney Stones: No Hx Neurogenic Bladder: No Hx Pyelonephritis: No Hx Renal (Kidney) Cancer: No Hx Renal Failure: No - ENDOCRINE/METABOLIC Hx Endocrine Disorders: No Hx Adrenal Cancer: No Hx Diabetes Insipidus: No Hx Diabetes Mellitus Type 1: No Hx Diabetes Mellitus Type 2: No Hx Hypothyroidism: Yes Hx Systemic Lupus Erythematosus: No - HEMATOLOGICAL/ONCOLOGICAL Hx Blood Disorders: No Hx AIDS: No Hx Anemia: No Hx Cancer: No Hx Chemotherapy: No Hx Cirrhosis: No Hx Hemophilia: No Hx Hepatitis A: No Hx Hepatitis B: No Hx Hepatitis C: No Hx Human Immunodeficiency Virus (HIV): No Hx Metastesis: No Hx Shingles: No Hx Sickle Cell Disease: No Hx Unexplained Bleeding: No - INTEGUMENTARY Hx Dermatological Problems: No Hx Basil Cell: No Hx Eczema: No Hx Melanoma: No Hx Psoriasis: No Hx Squamous Cell: No - MUSCULOSKELETAL/RHEUMATOLOGICAL Hx Musculoskeletal Disorders: No Hx Arthritis: No Hx Back Pain: No Hx Degenerative Joint Disease: No Hx Falls: No Hx Fractures: No Hx Gout: No Hx Herniated Disk: No Hx Myasthenia Gravis: No Hx Osteoarthritis: No Hx Osteomyelitis: No Hx Osteoporosis: No Hx Rhabdomyolysis: No Hx Spinal Stenosis: No Hx Unsteady Gait: No - GASTROINTESTINAL Hx Gastrointestinal Disorders: No Hx Colostomy: No Hx Crohn's Disease: No Hx Diverticulitis: No Hx Gall Bladder Disease: No Hx Gastroesophageal Reflux: No Hx Ileostomy: No Hx Liver Failure: No HX Swallowing Problems: No Hx Ulcer: No - GENITOURINARY/GYNECOLOGICAL Hx Genitourinary Disorders: No Hx Hematuria: No Hx Incontinence: No Hx Sexually Transmitted Disorders: No Hx Urinary Tract Infection: No - PSYCHIATRIC Hx Psychophysiologic Disorder: No Hx Anxiety: No Hx Bipolar Disorder: No Hx Depression: No Hx Emotional Abuse: No Hx Hallucinations: No Hx Panic Symptoms: No Hx Paranoia: No Hx Post Traumatic Stress Disorder: No Hx Psychosis: No Hx Physical Abuse: No Hx Schizophrenia: No Hx Sexual Abuse: No Hx Substance Use: No - SURGICAL HISTORY Hx Surgeries: No Hx Amputation: No Hx Appendectomy: Yes Hx Cardiac Catheterization: No Hx Cholecystectomy: No Hx Coronary Stent: No Hx Gastric Bypass Surgery: No Hx Hysterectomy: No Hx Joint Replacement: No Hx Kidney Transplant: No Hx Liver Transplant: No Hx Mastectomy: No Hx Musculoskeletal Surgery: No Hx Open Heart Surgery: No Hx Orthopedic Surgery: No Hx Splenectomy: No Hx Valve Replacement: No - ANESTHESIA Hx Anesthesia: Yes Hx Anesthesia Reactions: No Hx Malignant Hyperthermia: No Meds Allergies/Adverse Reactions: Allergies Allergy/AdvReac Type Severity Reaction Status Date / Time No Known Allergies Allergy Verified 11/09/17 01:20 Physical Exam - Constitutional Appears: Non-toxic, No Acute Distress - Head Exam Head Exam: ATRAUMATIC, NORMAL INSPECTION, NORMOCEPHALIC - Eye Exam Eye Exam: Normal appearance. absent: Conjunctival injection, Scleral icterus - ENT Exam ENT Exam: Mucous Membranes Dry - Respiratory Exam Respiratory Exam: NORMAL BREATHING PATTERN. absent: Accessory Muscle Use, Rale s, Rhonchi, Wheezes, Respiratory Distress - Cardiovascular Exam Cardiovascular Exam: +S1, +S2 - GI/Abdominal Exam GI & Abdominal Exam: Normal Bowel Sounds, Soft. absent: Firm, Guarding, Tenderness - Rectal Exam Rectal Exam: Deferred - Extremities Exam Extremities exam: Positive for: tenderness Additional comments: RLE in cast tender to palpation - Neurological Exam Neurological exam: Alert - Psychiatric Exam Psychiatric exam: Normal Affect, Normal Mood - Skin Skin Exam: Dry, Intact Results - Vital Signs Recent Vital Signs: Last Vital Signs Temp 98.3 F 09/23/18 23:12 Pulse 74 09/23/18 23:12 Resp 18 09/24/18 00:51 BP 121/68 09/23/18 23:12 Pulse Ox 98 09/23/18 23:12 - Labs Result Diagrams: 09/24/18 07:40 09/24/18 07:40 Labs: Laboratory Results - last 24 hr 09/23/18 09/23/18 12:40 12:40 WBC 9.7 RBC 3.79 Hgb 11.2 L D Hct 35.7 L MCV 94.2 MCH 29.6 MCHC 31.4 RDW 15.0 H Plt Count 140 MPV 10.8 Gran % 66.7 Lymph % (Auto) 13.8 L Anderson % (Auto) 19.1 H Eos % (Auto) 0.3 L Baso % (Auto) 0.1 Gran # 6.44 Lymph # (Auto) 1.3 Anderson # (Auto) 1.8 H Eos # (Auto) 0.0 Baso # (Auto) 0.01 Sodium 139 Potassium 3.8 Chloride 105 Carbon Dioxide 28 Anion Gap 9 L BUN 17 Creatinine 0.6 L Est GFR ( Amer) > 60 Est GFR (Non-Af Amer) > 60 Random Glucose 109 Calcium 9.1 Total Bilirubin 0.8 AST 19 ALT 26 Alkaline Phosphatase 73 Total Protein 6.7 Albumin 3.5 Globulin 3.2 Albumin/Globulin Ratio 1.1 Assessment & Plan - Assessment and Plan (Free Text) Assessment: 83yo female PMHx HTN, osteopenia, hypothyroidism, and dementia presents with right foot pain for 3 days. Patient admitted to [facility] for further management of suspected cellulitis. In light of patient's fall, head CT was ordered which was unremarkable for acute hemorrhage. In light of patient's unilateral RLE pain, swelling, and erythema, venous dopplers were ordered which was negative for DVT in the RLE. Bloodwork on admission noted- will follow up blood and urine cultures. Patient was given 1 dose of Vancomycin and Zosyn in the ER and ID Dr. Calvillo and Podiatry Dr. Angela were consulted. Patient had x-rays of right ankle which showed no fracture and right foot xray showed mild to moderate hallux valgus. Podiatry placed a posterior splint to the RLE and educated patient on RICE protocol. CT RLE ordered revealed no evidence of fractures; R foot and R ankle MRI ordered by podiatry to rule out soft tissue damage. Patient on Vanc and Cefepime as per ID and home HTN, hypothyroid, and HLD medications continued. Will follow up arterial studies to r/o PVD. At this time patient to be non weight bearing to RLE. PT screen ordered. I had a long conversation with patient's daughter, Alis regarding patient disposition and all questions and concerns were answered thoroughly. Daughter requesting that the patient be eventually discharged to [facility] for conditioning when patient is medically optimized and would like to speak with case management regarding this. Discussed with Dr. Haris Judd PGY3 <Jarrett Boo S - Last Filed: 09/24/18 19:24> Results - Vital Signs Recent Vital Signs: Last Vital Signs Temp 98.1 F 09/24/18 06:00 Pulse 70 09/24/18 06:00 Resp 18 09/24/18 06:00 BP 106/54 L 09/24/18 11:21 Pulse Ox 95 09/24/18 06:00 - Labs Result Diagrams: 09/24/18 07:40 09/24/18 07:40 Labs: Laboratory Results - last 24 hr 09/24/18 09/24/18 09/24/18 07:40 07:40 07:40 WBC 7.3 D RBC 3.52 Hgb 10.6 L Hct 33.9 L MCV 96.3 MCH 30.1 MCHC 31.3 RDW 15.4 H Plt Count 126 MPV 12.3 H Gran % 64.8 Lymph % (Auto) 17.1 L Anderson % (Auto) 16.8 H Eos % (Auto) 1.2 L Baso % (Auto) 0.1 Gran # 4.69 Lymph # (Auto) 1.2 Anderson # (Auto) 1.2 H Eos # (Auto) 0.1 Baso # (Auto) 0.01 ESR 63 H PT 14.8 H INR 1.28 APTT 29.6 Sodium 141 Potassium 3.5 L Chloride 108 H Carbon Dioxide 29 Anion Gap 8 L BUN 12 Creatinine 0.6 L Est GFR ( Amer) > 60 Est GFR (Non-Af Amer) > 60 Random Glucose 87 Hemoglobin A1c Calcium 8.5 Phosphorus 3.4 Magnesium 2.1 Total Bilirubin 0.6 AST 19 ALT 24 Alkaline Phosphatase 66 C-Reactive Protein 154.40 H Total Protein 5.9 Albumin 3.0 Globulin 2.9 Albumin/Globulin Ratio 1.0 L Procalcitonin Urine Color Urine Appearance Urine pH Ur Specific [place] Urine Protein Urine Glucose (UA) Urine Ketones Urine Blood Urine Nitrate Urine Bilirubin Urine Urobilinogen Ur Leukocyte Esterase Urine RBC Urine WBC Ur Epithelial Cells Urine Bacteria 09/24/18 09/24/18 09/24/18 07:40 11:07 15:31 WBC RBC Hgb Hct MCV MCH MCHC RDW Plt Count MPV Gran % Lymph % (Auto) Anderson % (Auto) Eos % (Auto) Baso % (Auto) Gran # Lymph # (Auto) Anderson # (Auto) Eos # (Auto) Baso # (Auto) ESR PT INR APTT Sodium Potassium Chloride Carbon Dioxide Anion Gap BUN Creatinine Est GFR ( Amer) Est GFR (Non-Af Amer) Random Glucose Hemoglobin A1c 5.6 Calcium Phosphorus Magnesium Total Bilirubin AST ALT Alkaline Phosphatase C-Reactive Protein Total Protein Albumin Globulin Albumin/Globulin Ratio Procalcitonin 0.25 Urine Color Yellow Urine Appearance Clear Urine pH 7.0 Ur Specific [place] 1.015 Urine Protein Negative Urine Glucose (UA) Negative Urine Ketones Negative Urine Blood Large H Urine Nitrate Negative Urine Bilirubin Negative Urine Urobilinogen 1.0 H Ur Leukocyte Esterase Trace H Urine RBC 2 - 5 Urine WBC 1 - 3 Ur Epithelial Cells 0 - 2 Urine Bacteria Neg Assessment & Plan - Assessment and Plan (Free Text) Assessment: Pt seen and examined. I reviewed the note of the healthcare or medical and I agree with the note including the assessment and plan. I reviewed the medications and last labs. Pt with R foot cellulitis and edema. She had a fall and then developed R foot pain. She was seen by podiatry and ID. LE dopplers were negative for DVT. She will need arterial dopplers done for evaluation of PAD. She is non-wt bearing at this time. She has Dementia- Alz type mild. Resident did speak with the daughter. Hypothyroidism will be treated with synthroid. The pt will most likely need NISREEN. She is eating and in no pain. Her R leg was wrapped by podiatry.
[2018-09-24 08:05] LABS: INR 1.28; PARTIAL THROMBOPLASTIN TIME 29.6 Seconds (25.1-36.5); PROTHROMBIN TIME 14.8 SECONDS (9.4-12.5)
[2018-09-24 08:13] LABS: ALT/SGPT 24 U/L (7-56); AST/SGOT 19 U/L (14-36); BLOOD UREA NITROGEN 12 mg/dL (7-21); CALCIUM 8.5 mg/dL (8.4-10.5); GFR NON-AFRICAN AMERICAN > 60
[2018-09-24 08:16] LABS: HEMOGLOBIN 10.6 g/dL (12.0-16.0); MEAN CELL VOLUME 96.3 fl (80.0-105.0); MEAN CORPUSCULAR HEMOGLOBIN 30.1 pg (25.0-35.0); MEAN CORPUSCULAR HGB CONC 31.3 g/dl (31.0-37.0); RBC 3.52 10^6/uL (3.5-6.1); RED CELL DISTRIBUTION WIDTH 15.4 % (11.5-14.5); WHITE BLOOD COUNT 7.3 10^3/uL (4.5-11.0)
[2018-09-24 08:17] LABS: BASO # 0.01 K/mm3 (0.0-2.0); BASO % 0.1 % (0.0-3.0); EOS # 0.1 (0.0-0.7); EOS % 1.2 % (1.5-5.0); GRAN # 4.69 (1.4-6.5); GRAN % 64.8 % (50.0-68.0); LYMPH # 1.2 (1.2-3.4); LYMPH % 17.1 % (22.0-35.0); MEAN PLATELET VOLUME 12.3 fl (7.0-11.0); MONO # 1.2 (0.1-0.6); MONO % 16.8 % (1.0-6.0)
--- NOTE | 2018-09-24 09:11 | RAD ---
Date of service: 09/23/2018 PROCEDURE: CHEST RADIOGRAPH, 1 VIEW HISTORY: foot infection COMPARISON: 09/23/2018 FINDINGS: LUNGS: Clear. PLEURA: No pneumothorax or pleural fluid seen. CARDIOVASCULAR: Mild aortic calcification and tortuosity moderate cardiomegaly OSSEOUS STRUCTURES: No significant abnormalities. VISUALIZED UPPER ABDOMEN: Normal. OTHER FINDINGS: None. IMPRESSION: No active disease.
--- NOTE | 2018-09-24 10:13 | RAD ---
Date of service: 09/23/2018 PROCEDURE: Right Ankle Radiographs. HISTORY: R/in or out fracture R ankle COMPARISON: None available. FINDINGS: BONES: Normal. No fracture. JOINTS: Normal. No osteoarthritis. Ankle mortise maintained. Talar dome intact SOFT TISSUES: Normal. OTHER FINDINGS: None. IMPRESSION: Normal right ankle radiographs.
[2018-09-24] MEDS: Levothyroxine 100 MCG TAB PO SCH (11:20)
--- NOTE | 2018-09-24 11:35 | CP.PCM.PN ---
<Meño Rayo - Last Filed: 09/24/18 12:28> Subjective - Date & Time of Evaluation Date of Evaluation: 09/24/18 Time of Evaluation: 11:32 - Subjective Subjective: Podiatry progress note for attending Dr. Angela: 82 year old female patient seen and evaluated in the bedside for pain, redness, bruising and swelling in her right foot and ankle. Patient states that her foot pain decreased a lot since yesterday. Patient denies any overnight chest pain, shortness of breath, abdominal pain, fevers, chills, nausea, vomiting, diarrhea, trauma recently. She denies any other pedal complaint recently. Objective - Vital Signs/Intake and Output Vital Signs (last 24 hours): Temp Pulse Resp BP Pulse Ox 98.1 F 70 18 106/54 L 95 09/24/18 06:00 09/24/18 06:00 09/24/18 06:00 09/24/18 11:21 09/24/18 06:00 - Medications Medications: Current Medications Amlodipine Besylate (Norvasc) 10 mg PO DAILY [facility] Last Admin: 09/24/18 11:21 Dose: Not Given Atorvastatin Calcium (Lipitor) 10 mg PO DIN JULES Vancomycin HCl (Vancomycin 1gm) 1 gm in 250 mls @ 167 mls/hr IVPB Q12H JULES; Protocol Last Admin: 09/24/18 11:20 Dose: 167 mls/hr Cefepime HCl (Maxipime 1gm) 1 gm in 100 mls @ 100 mls/hr IVPB Q8 JULES; Protocol Levothyroxine Sodium (Synthroid) 100 mcg PO DAILY [facility] Last Admin: 09/24/18 11:20 Dose: 100 mcg Lisinopril (Zestril) 2.5 mg PO DAILY [facility] Last Admin: 09/24/18 11:21 Dose: Not Given - Labs Labs: 09/24/18 07:40 09/24/18 07:40 PT 14.8 SECONDS (9.4-12.5) H 09/24/18 07:40 INR 1.28 09/24/18 07:40 APTT 29.6 Seconds (25.1-36.5) 09/24/18 07:40 - Constitutional Appears: Well, Non-toxic, No Acute Distress - Head Exam Head Exam: ATRAUMATIC, NORMOCEPHALIC - Extremities Exam Additional comments: B/L LE focused exam: Vasc: DP 2/4, PT 1/4 due to perimalleolar edema. Cap refill < 3 sec to all digits. Temp gradient warm to cool from proximal to distal on the left side and warm to warm from proximal to distal. Right moderate non pitting perimalleolar edema. Erythema noted in the R foot and ankle but less than yesterday. Supe rficial varicosities noted on the left LE. Neuro: Gross and protective sensations are intact b/l. Derm: Bruising noted to the R 1st and 2nd toes. Erythema noted in the R foot and ankle but less than yesterday. No open lesion. no drainage b/l. MSK: Mild Pain on palpating the Right perimalleolar area. Pain with ROM of the R foot and ankle. Pain on palpating the R foot. Muscle power intact to all groups 5/5 b/l. - Neurological Exam Neurological Exam: Alert, Awake, Oriented x3 - Psychiatric Exam Psychiatric exam: Normal Affect, Normal Mood Assessment and Plan - Assessment and Plan (Free Text) Assessment: 83 y/o F patient seen and evaluated in the bedside for Right foot and ankle pain, redness, bruising and swelling in her right foot and ankle. Plan: - Patient seen and evaluated at the bedside in the ED with Dr. Angela. - Plan discussed in details with attending Dr. Angela. - Charts, labs and vitals reviewed: Afebrile, no leukocytosis - R 3 views foot x-ray; official report Hallux valgus. - R3 views ankle x-ray; Official report no osseous anomalies. - R venous duplex; No evidence of DVT. - R LE CT scan; No evidence of fractures, R TN joint degenerative changes. - Ordered R foot and ankle MRI. - Reapplied posterior splint and modified Coon compression to the RLE. - RICE protocol educated. - Stay NWB to the RLE. - Podiatry will continue to follow up the patient while in house. <Vu Angela - Last Filed: 09/24/18 16:01> Objective - Vital Signs/Intake and Output Vital Signs (last 24 hours): Temp Pulse Resp BP Pulse Ox 98.1 F 70 18 106/54 L 95 09/24/18 06:00 09/24/18 06:00 09/24/18 06:00 09/24/18 11:21 09/24/18 06:00 - Medications Medications: Current Medications Amlodipine Besylate (Norvasc) 10 mg PO DAILY [facility] Last Admin: 09/24/18 11:21 Dose: Not Given Atorvastatin Calcium (Lipitor) 10 mg PO DIN JULES Vancomycin HCl (Vancomycin 1gm) 1 gm in 250 mls @ 167 mls/hr IVPB Q12H JULES; Protocol Last Admin: 09/24/18 11:20 Dose: 167 mls/hr Cefepime HCl (Maxipime 1gm) 1 gm in 100 mls @ 100 mls/hr IVPB Q8 JULES; Protocol Last Admin: 09/24/18 15:48 Dose: 100 mls/hr Levothyroxine Sodium (Synthroid) 100 mcg PO DAILY [facility] Last Admin: 09/24/18 11:20 Dose: 100 mcg Lisinopril (Zestril) 2.5 mg PO DAILY [facility] Last Admin: 09/24/18 11:21 Dose: Not Given - Labs Labs: 09/24/18 07:40 09/24/18 07:40 PT 14.8 SECONDS (9.4-12.5) H 09/24/18 07:40 INR 1.28 09/24/18 07:40 APTT 29.6 Seconds (25.1-36.5) 09/24/18 07:40 Attending/Attestation - Attestation I have personally seen and examined this patient.: Yes I have fully participated in the care of the patient.: Yes I have reviewed all pertinent clinical information, including history, physical exam and plan: Yes
--- NOTE | 2018-09-24 12:26 | CT ---
Date of service: 09/23/2018 PROCEDURE: CT of the right foot HISTORY: R/in or out fracture Right foot COMPARISON: Plain films same day TECHNIQUE: Radiation dose: Total exam DLP = 347.78 mGy-cm. This CT exam was performed using one or more of the following dose reduction techniques: Automated exposure control, adjustment of the mA and/or kV according to patient size, and/or use of iterative reconstruction technique. FINDINGS: There is no evidence of fracture. Degenerative changes are seen at the talonavicular joint. Diffuse subcutaneous edema is seen over the dorsum of the foot. This could represent passive edema or cellulitis. The report concurs with the preliminary [facility] report IMPRESSION: No evidence of fracture
[2018-09-24 15:38] LABS: URINE APPEARANCE CLEAR (CLEAR); URINE BILIRUBIN NEGATIVE (NEGATIVE); URINE BLOOD LARGE (NEGATIVE); URINE COLOR YELLOW (YELLOW); URINE GLUCOSE (UA) NEGATIVE (NEGATIVE); URINE LEUKOCYTE ESTERASE TRACE Leu/uL (NEGATIVE); URINE PROTEIN NEGATIVE mg/dL (<30 mg/dL)
[2018-09-24 15:44] LABS: URINE BACTERIA NEG (NEG); URINE EPITHELIAL CELLS 0 - 2 /hpf (0-5)
[2018-09-24] MEDS: Cefepime 1gm in NS 100ml 1 GM/100 ML BAG IVPB SCH ×2 (15:48→21:22)
--- NOTE | 2018-09-24 19:49 | CON ---
DATE OF CONSULTATION: 09/24/2018 The patient is in bed in no acute distress. CHIEF COMPLAINT: Right foot and right leg pain times several days. HISTORY OF PRESENT ILLNESS: This is an 83-year-old female known to me from previous admission in 2016. At that time, the patient had a right leg cellulitis. The patient also has hypertension, osteoporosis, dementia, hypothyroidism, who is now admitted with a diagnosis of right foot cellulitis. Infectious Disease consultation requested. PAST MEDICAL HISTORY: Significant for hypertension, osteoporosis, dementia, hypothyroidism. PAST SURGICAL HISTORY: Significant for tonsillectomy and appendectomy. MEDICATIONS AT HOME: Reviewed. ALLERGIES: THE PATIENT HAS NO KNOWN ALLERGIES. REVIEW OF SYSTEMS: The patient has no fevers, no chills. No nausea, no vomiting. No chest pain. No abdominal pain, diarrhea or constipation. No dysuria or frequency. A 14-point review of systems is performed. PHYSICAL EXAMINATION: VITAL SIGNS: The patient's temperature is 98, blood pressure is 103/50, respiratory rate of 18, heart rate of 74. HEENT: Unremarkable. NECK: Supple. LUNGS: Decreased breath sounds. HEART: Normal S1, S2. ABDOMEN: Soft. EXTREMITIES: Examination of the lower extremities as per log tumbler's description. LABORATORY DATA: Examination reveals a white count of 7.3. Sed rate is 63. Coagulation is noted. The patient has a hemoglobin of 10. Chemistries are reviewed. No urinalysis is available at this time. IMAGING: CAT scan of the lower extremities is ordered and pending. ASSESSMENT AND PLAN: This is an 83-year-old female with hypertension, osteoporosis, dementia, hypothyroidism, history of right leg cellulitis in 2016, now presenting with a right foot and right leg cellulitis. Must rule out underlying peripheral arterial disease. Must rule out osteomyelitis versus new onset of diabetes. We will treat the patient with vancomycin and Maxipime. The patient is scheduled for a CT of the lower extremities to rule out osteomyelitis and the compartment syndrome, on vancomycin and cefepime. We will check on the imaging, cultures and initial workup results. Carlos Calvillo MD [facility] # [id number]
[2018-09-25] MEDS: Cefepime 1gm in NS 100ml 1 GM/100 ML BAG IVPB SCH ×3 (05:10→22:56)
--- NOTE | 2018-09-25 06:42 | CP.PCM.PN ---
<Catrachita Judd - Last Filed: 09/25/18 14:32> Subjective - Date & Time of Evaluation Date of Evaluation: 09/25/18 Time of Evaluation: 07:15 - Subjective Subjective: Pgy3 IM Progress note for Dr. Boo service Patient seen and examined at bedside. As per nursing, patient was noncompliant regarding non weight bearing status and insisted on ambulating to the bathroom. Patient has bedside commode but refused to use it. Patient denied any pain in RLE overnight and did not request any pain medications. This AM patient did not want to speak to me but agreed to be examined. Objective - Vital Signs/Intake and Output Vital Signs (last 24 hours): Temp Pulse Resp BP Pulse Ox 97 F L 52 L 20 108/60 96 09/24/18 22:15 09/24/18 22:15 09/24/18 22:15 09/24/18 22:15 09/24/18 22:15 Intake and Output: 09/24/18 09/25/18 18:59 06:59 Intake Total 360 Balance 360 - Medications Medications: Current Medications Amlodipine Besylate (Norvasc) 10 mg PO DAILY [facility] Last Admin: 09/24/18 11:21 Dose: Not Given Atorvastatin Calcium (Lipitor) 10 mg PO DIN [facility] Last Admin: 09/24/18 17:09 Dose: 10 mg Vancomycin HCl (Vancomycin 1gm) 1 gm in 250 mls @ 167 mls/hr IVPB Q12H [facility]; Protocol Last Admin: 09/24/18 21:23 Dose: 167 mls/hr Cefepime HCl (Maxipime 1gm) 1 gm in 100 mls @ 100 mls/hr IVPB Q8 [facility]; Protocol Last Admin: 09/25/18 05:10 Dose: 100 mls/hr Levothyroxine Sodium (Synthroid) 100 mcg PO DAILY [facility] Last Admin: 09/24/18 11:20 Dose: 100 mcg Lisinopril (Zestril) 2.5 mg PO DAILY [facility] Last Admin: 09/24/18 11:21 Dose: Not Given - Labs Labs: 09/24/18 07:40 09/24/18 07:40 PT 14.8 SECONDS (9.4-12.5) H 09/24/18 07:40 INR 1.28 09/24/18 07:40 APTT 29.6 Seconds (25.1-36.5) 09/24/18 07:40 - Constitutional Appears: Non-toxic, No Acute Distress - Head Exam Head Exam: ATRAUMATIC, NORMAL INSPECTION, NORMOCEPHALIC - Eye Exam Eye Exam: EOMI, Normal appearance. absent: Conjunctival injection, Scleral icterus - ENT Exam ENT Exam: Mucous Membranes Moist - Respiratory Exam Respiratory Exam: Clear to Ausculation Bilateral, NORMAL BREATHING PATTERN. absent: Accessory Muscle Use, Rales, Rhonchi, Wheezes, Respiratory Distress - Cardiovascular Exam Cardiovascular Exam: +S1, +S2 - GI/Abdominal Exam GI & Abdominal Exam: Soft, Normal Bowel Sounds. absent: Firm, Guarding, Rigid, Tenderness - Rectal Exam Rectal Exam: Deferred - Extremities Exam Additional comments: RLE in posterior splint - Neurological Exam Neurological Exam: Alert, Awake - Psychiatric Exam Psychiatric exam: Normal Affect, Normal Mood - Skin Skin Exam: Dry, Intact Assessment and Plan - Assessment and Plan (Free Text) Assessment: 1. RLE cellulitis 2. Iron deficient anemia 3. Gait dysfunction 4. Hypokalemia 5. Hx of HTN 6. Hx of Osteoporosis 7. Hx of Hypothyroidism 8. Hx of Dementia- Alzheimer's type 9. Hearing impairment Plan: Continue IV abx Cefepime and Vancomycin as per ID. Elevated ESR 63 and CRP 154.4 noted. RLE MRI showed subq edema over dorsum over foot with no evidence of osteomyelitis. Blood culture prelim neg x 2. Arterial studies ordered- cannot be completed at this time due to splint. Continue RICE protocol and must educate patient and family on importance of NWB status at this time. Imaging of RLE showed no fracture and dopplers negative for DVT. Patient anemia studies reviewed- started PO iron. U/A on admission had +large blood with no RBCs. CK ordered to r/o rhabdo which was < 20. Continue home meds. PT eval pending. Appreciate ID and Podiatry reccs. Family requesting patient be discharged to [facility] when medically optimized. Case management aware. Discussed with Dr. Haris Judd PGY3 <Jarrett Boo - Last Filed: 09/26/18 18:56> Objective - Vital Signs/Intake and Output Vital Signs (last 24 hours): Temp Pulse Resp BP Pulse Ox 98.6 F 65 18 109/62 100 09/26/18 14:00 09/26/18 14:00 09/26/18 14:00 09/26/18 14:00 09/26/18 14:00 Intake and Output: 09/26/18 09/26/18 06:59 18:59 Intake Total 360 Balance 360 - Medications Medications: Current Medications Amlodipine Besylate (Norvasc) 10 mg PO DAILY [facility] Last Admin: 09/26/18 09:44 Dose: 10 mg Atorvastatin Calcium (Lipitor) 10 mg PO DIN [facility] Last Admin: 09/26/18 17:15 Dose: 10 mg Donepezil HCl (Aricept) 5 mg PO HS [facility] Ferrous Sulfate (Feosol) 324 mg PO BID [facility] Last Admin: 09/26/18 17:15 Dose: 324 mg Vancomycin HCl (Vancomycin 1gm) 1 gm in 250 mls @ 167 mls/hr IVPB Q12H [facility]; Protocol Last Admin: 09/26/18 09:43 Dose: 167 mls/hr Cefepime HCl (Maxipime 1gm) 1 gm in 100 mls @ 100 mls/hr IVPB Q8 [facility]; Protocol Last Admin: 09/26/18 14:14 Dose: 100 mls/hr Levothyroxine Sodium (Synthroid) 100 mcg PO DAILY [facility] Last Admin: 09/26/18 09:44 Dose: 100 mcg Lisinopril (Zestril) 2.5 mg PO DAILY [facility] Last Admin: 09/26/18 09:43 Dose: 2.5 mg - Labs Labs: 09/26/18 07:20 09/26/18 07:20 PT 14.8 SECONDS (9.4-12.5) H 09/24/18 07:40 INR 1.28 09/24/18 07:40 APTT 29.6 Seconds (25.1-36.5) 09/24/18 07:40 Assessment and Plan - Assessment and Plan (Free Text) Plan: Pt seen and examined. I reviewed the note of the rn medical inpatient services and I agree with the note including the assessment and plan. I reviewed the medications and last labs. Pt with fall. She will need NISREEN for her gait dysfunction. She has R foot cellulitis that is improving with Cefepime and Vanco. The pt has R foot edema that is improving. MRI did not show osteomyelitis. She has Dementia- Alzh type. She at risk of Delerium.
[2018-09-25 07:06] LABS: BASO # 0.01 K/mm3 (0.0-2.0); BASO % 0.2 % (0.0-3.0); EOS # 0.1 (0.0-0.7); EOS % 1.9 % (1.5-5.0); GRAN # 3.76 (1.4-6.5); HEMOGLOBIN 10.7 g/dL (12.0-16.0); LYMPH # 1.3 (1.2-3.4); LYMPH % 19.4 % (22.0-35.0); MEAN CORPUSCULAR HEMOGLOBIN 29.6 pg (25.0-35.0); MEAN CORPUSCULAR HGB CONC 31.1 g/dl (31.0-37.0); MEAN PLATELET VOLUME 11.4 fl (7.0-11.0); MONO # 1.3 (0.1-0.6); MONO % 20.5 % (1.0-6.0); PLATELET COUNT 152 10^3/uL (120.0-450.0); RBC 3.62 10^6/uL (3.5-6.1); RED CELL DISTRIBUTION WIDTH 14.9 % (11.5-14.5); WHITE BLOOD COUNT 6.5 10^3/uL (4.5-11.0)
[2018-09-25 07:14] LABS: ALT/SGPT 27 U/L (7-56); AST/SGOT 22 U/L (14-36); BLOOD UREA NITROGEN 9 mg/dL (7-21); CALCIUM 8.4 mg/dL (8.4-10.5); GFR NON-AFRICAN AMERICAN > 60
[2018-09-25] MEDS ORDERED: Potassium Chloride 20 mEq ER Tab PO ONE (07:48)
[2018-09-25 08:16] LABS: BAND 1 % (0-2); BASOPHIL 1 % (0.0-1.0); EOSINOPHIL 2 % (0.0-3.0); LYMPHOCYTE 25 % (22.0-35.0); MONOCYTE 8 % (1.0-6.0); NEUTROPHIL 63 % (50.0-70.0)
[2018-09-25 08:17] LABS: PLATELET ESTIMATE NORMAL (NORMAL)
[2018-09-25] MEDS: Levothyroxine 100 MCG TAB PO SCH (09:22)
[2018-09-25 11:29] LABS: IRON 30 ug/dL (45-180)
[2018-09-25 11:38] LABS: % IRON SATURATION 11 % (20-55); TOTAL IRON BINDING CAPACITY 262 ug/dL (265-497)
--- NOTE | 2018-09-25 12:32 | MRI ---
Date of service: 09/25/2018 PROCEDURE: MRI of the right foot without contrast HISTORY: R foot and ankle pain, swelling and erythema COMPARISON: TECHNIQUE: MRI of the right foot was performed in multiple planes using multiple pulse sequences. FINDINGS: There is a large amount of subcutaneous edema over the dorsum of the foot. This could be due to cellulitis or passive edema. There is no marrow edema to suggest osteomyelitis. There is a mild hallux valgus deformity. There is no significant degeneration IMPRESSION: Subcutaneous edema over the dorsum of the foot. No evidence of osteomyelitis
--- NOTE | 2018-09-25 12:48 | CP.PCM.PN ---
<Meño Rayo - Last Filed: 09/25/18 17:05> Subjective - Date & Time of Evaluation Date of Evaluation: 09/25/18 Time of Evaluation: 12:47 - Subjective Subjective: Podiatry progress note for attending Dr. Melissa: 82 year old female patient seen and evaluated in the bedside for pain, redness, bruising and swelling in her right foot and ankle. Patient states that her foot pain is mild now. Patient denies any overnight chest pain, shortness of breath, abdominal pain, fevers, chills, nausea, vomiting, diarrhea, trauma recently. She denies any other pedal complaint recently. Objective - Vital Signs/Intake and Output Vital Signs (last 24 hours): Temp Pulse Resp BP Pulse Ox 97.9 F 64 18 119/73 97 09/25/18 06:00 09/25/18 09:22 09/25/18 06:00 09/25/18 11:52 09/25/18 06:00 Intake and Output: 09/25/18 09/25/18 06:59 18:59 Intake Total 360 Balance 360 - Medications Medications: Current Medications Amlodipine Besylate (Norvasc) 10 mg PO DAILY [facility] Last Admin: 09/25/18 11:52 Dose: 10 mg Atorvastatin Calcium (Lipitor) 10 mg PO DIN [facility] Last Admin: 09/24/18 17:09 Dose: 10 mg Vancomycin HCl (Vancomycin 1gm) 1 gm in 250 mls @ 167 mls/hr IVPB Q12H [facility]; Protocol Last Admin: 09/24/18 21:23 Dose: 167 mls/hr Cefepime HCl (Maxipime 1gm) 1 gm in 100 mls @ 100 mls/hr IVPB Q8 [facility]; Protocol Last Admin: 09/25/18 05:10 Dose: 100 mls/hr Levothyroxine Sodium (Synthroid) 100 mcg PO DAILY [facility] Last Admin: 09/25/18 09:22 Dose: 100 mcg Lisinopril (Zestril) 2.5 mg PO DAILY [facility] Last Admin: 09/25/18 09:22 Dose: 2.5 mg - Labs Labs: 09/25/18 06:35 09/25/18 06:35 PT 14.8 SECONDS (9.4-12.5) H 09/24/18 07:40 INR 1.28 09/24/18 07:40 APTT 29.6 Seconds (25.1-36.5) 09/24/18 07:40 - Constitutional Appears: Well, Non-toxic, No Acute Distress - Head Exam Head Exam: ATRAUMATIC, NORMOCEPHALIC - Extremities Exam Additional comments: B/L LE focused exam: Vasc: DP 2/4, PT 1/4 due to perimalleolar edema. Cap refill < 3 sec to all digits. Temp gradient warm to cool from proximal to distal on the left side and warm to warm from proximal to distal. Right moderate non pitting perimalleolar edema. Erythema noted in the R foot and ankle but less than yesterday. Superficial varicosities noted on the left LE. Neuro: Gross and protective sensations are intact b/l. Derm: Bruising noted to the R 1st and 2nd toes. Erythema noted in the R foot and ankle but less than yesterday. No open lesion. no drainage b/l. MSK: Mild Pain on palpating the Right perimalleolar area. Pain with ROM of the R foot and ankle. Pain on palpating the R foot. Muscle power intact to all groups 5/5 b/l. - Neurological Exam Neurological Exam: Alert, Awake Assessment and Plan - Assessment and Plan (Free Text) Assessment: 83 y/o F patient seen and evaluated in the bedside for Right foot and ankle pain, redness, bruising and swelling in her right foot and ankle. Plan: - Patient seen and evaluated at the bedside in the ED with Dr. Melissa - Plan discussed in details with attending Dr. Melissa - Charts, labs and vitals reviewed: Afebrile, no leukocytosis - R 3 views foot x-ray; official report Hallux valgus. - R3 views ankle x-ray; Official report no osseous anomalies. - R venous duplex; No evidence of DVT. - R LE CT scan; No evidence of fractures, R TN joint degenerative changes. - R foot and ankle MRI; subcutaneous edema over dorsum over foot with no evidence of osteomyelitis. - Elevated ESR 63 and CRP 154.4 noted. - Discontinue Posterior splint and modified Coon compression. - Applied UNNA boot with a layer or wibrol and Coban. - Continue RICE protocol. - Patient can bear weight as tolerated to the RLE. - Ordered pair of surgical shoes. - Patient to ambulate in the surgical shoes all the times. - Continue IV abx Cefepime and Vancomycin as per ID. - Patient to be evaluated for TCU transfer. - Podiatry will continue to follow up the patient while in house. <Anyi Melissa - Last Filed: 09/27/18 14:58> Objective - Vital Signs/Intake and Output Vital Signs (last 24 hours): Temp Pulse Resp BP Pulse Ox 98.6 F 65 18 109/62 100 09/26/18 14:00 09/26/18 14:00 09/26/18 14:00 09/26/18 14:00 09/26/18 14:00 - Labs Labs: 09/26/18 07:20 09/26/18 07:20 PT 14.8 SECONDS (9.4-12.5) H 09/24/18 07:40 INR 1.28 09/24/18 07:40 APTT 29.6 Seconds (25.1-36.5) 09/24/18 07:40 Attending/Attestation - Attestation I have personally seen and examined this patient.: Yes I have fully participated in the care of the patient.: Yes I have reviewed all pertinent clinical information, including history, physical exam and plan: Yes Notes (Text): 09/27/18 14:56 pt seen with family at bedside; discussion with pt and her daughter who is a nurse; we did xrays CAT scan and MRI no fracture or dislocation of foot or ankle was noted; the wound on the toe is superficial with no signs of fluctuance or abcess; pt family would like her to go to [facility] and then home; I told them it was up to the PT therapist and if she is not a candidate she may need to go to a subacute; unna boot coban and surgical shoe - can ambulate to tolerance
[2018-09-25] MEDS: Vancomycin 1gm in NS 250ml 1 GM/250 ML BAG IVPB SCH ×2 (14:29→22:57)
--- NOTE | 2018-09-25 17:10 | CP.PCM.PCO ---
Physician Communication Note - Physician Communication Note Physician Communication Note: will need 7-10 days of IV Antibx for cellulitis right foot, no osteo on MRI
[2018-09-25 19:35] LABS: FERRITIN 45.6 ng/mL
--- NOTE | 2018-09-25 19:40 | CP.PCM.PN ---
Subjective - Date & Time of Evaluation Date of Evaluation: 09/25/18 Time of Evaluation: 09:50 - Subjective Subjective: Afebrile, not in distress, less pain in the foot. Objective - Vital Signs/Intake and Output Vital Signs (last 24 hours): Temp Pulse Resp BP Pulse Ox 98.1 F 65 20 122/68 94 L 09/25/18 14:00 09/25/18 14:00 09/25/18 14:00 09/25/18 14:00 09/25/18 14:00 - Medications Medications: Current Medications Amlodipine Besylate (Norvasc) 10 mg PO DAILY [facility] Last Admin: 09/25/18 11:52 Dose: 10 mg Atorvastatin Calcium (Lipitor) 10 mg PO DIN [facility] Last Admin: 09/24/18 17:09 Dose: 10 mg Ferrous Sulfate (Feosol) 324 mg PO BID [facility] Vancomycin HCl (Vancomycin 1gm) 1 gm in 250 mls @ 167 mls/hr IVPB Q12H [facility]; Protocol Last Admin: 09/25/18 14:29 Dose: 167 mls/hr Cefepime HCl (Maxipime 1gm) 1 gm in 100 mls @ 100 mls/hr IVPB Q8 [facility]; Protocol Last Admin: 09/25/18 14:29 Dose: 100 mls/hr Levothyroxine Sodium (Synthroid) 100 mcg PO DAILY [facility] Last Admin: 09/25/18 09:22 Dose: 100 mcg Lisinopril (Zestril) 2.5 mg PO DAILY [facility] Last Admin: 09/25/18 09:22 Dose: 2.5 mg - Labs Labs: 09/25/18 06:35 09/25/18 06:35 PT 14.8 SECONDS (9.4-12.5) H 09/24/18 07:40 INR 1.28 09/24/18 07:40 APTT 29.6 Seconds (25.1-36.5) 09/24/18 07:40 - Constitutional Appears: Chronically Ill - Head Exam Head Exam: NORMAL INSPECTION - Respiratory Exam Respiratory Exam: Decreased Breath Sounds - Cardiovascular Exam Cardiovascular Exam: +S1, +S2 - GI/Abdominal Exam GI & Abdominal Exam: Soft. absent: Tenderness - Extremities Exam Additional comments: right foot with dressings in place Assessment and Plan - Assessment and Plan (Free Text) Plan: Assessment Right foot cellulitis, with no evidence of osteomyelitis on MRI HTN osteopenia hypothyroidism dementia Plan continue Vancomycin and Cefepime day 2 for 7-10 days of therapy
[2018-09-25 20:05] LABS: FOLATE > 20.0 ng/mL
--- NOTE | 2018-09-26 05:09 | CP.PCM.PN ---
Objective - Vital Signs/Intake and Output Vital Signs (last 24 hours): Temp Pulse Resp BP Pulse Ox 98.1 F 65 20 122/68 94 L 09/25/18 14:00 09/25/18 14:00 09/25/18 14:00 09/25/18 14:00 09/25/18 14:00 Intake and Output: 09/25/18 09/26/18 18:59 06:59 Intake Total 360 Balance 360 - Medications Medications: Current Medications Amlodipine Besylate (Norvasc) 10 mg PO DAILY [facility] Last Admin: 09/25/18 11:52 Dose: 10 mg Atorvastatin Calcium (Lipitor) 10 mg PO DIN [facility] Last Admin: 09/24/18 17:09 Dose: 10 mg Ferrous Sulfate (Feosol) 324 mg PO BID [facility] Vancomycin HCl (Vancomycin 1gm) 1 gm in 250 mls @ 167 mls/hr IVPB Q12H [facility]; Protocol Last Admin: 09/25/18 22:57 Dose: 167 mls/hr Cefepime HCl (Maxipime 1gm) 1 gm in 100 mls @ 100 mls/hr IVPB Q8 [facility]; Protocol Last Admin: 09/25/18 22:56 Dose: 100 mls/hr Levothyroxine Sodium (Synthroid) 100 mcg PO DAILY [facility] Last Admin: 09/25/18 09:22 Dose: 100 mcg Lisinopril (Zestril) 2.5 mg PO DAILY [facility] Last Admin: 09/25/18 09:22 Dose: 2.5 mg - Labs Labs: 09/25/18 06:35 09/25/18 06:35 PT 14.8 SECONDS (9.4-12.5) H 09/24/18 07:40 INR 1.28 09/24/18 07:40 APTT 29.6 Seconds (25.1-36.5) 09/24/18 07:40
[2018-09-26] MEDS: Cefepime 1gm in NS 100ml 1 GM/100 ML BAG IVPB SCH ×2 (05:53→14:14)
[2018-09-26 07:43] LABS: BASO # 0.01 K/mm3 (0.0-2.0); BASO % 0.2 % (0.0-3.0); EOS # 0.1 (0.0-0.7); GRAN # 3.69 (1.4-6.5); GRAN % 57.5 % (50.0-68.0); HEMOGLOBIN 11.2 g/dL (12.0-16.0); LYMPH % 16.1 % (22.0-35.0); MEAN CELL VOLUME 94.5 fl (80.0-105.0); MEAN CORPUSCULAR HEMOGLOBIN 29.4 pg (25.0-35.0); MEAN CORPUSCULAR HGB CONC 31.1 g/dl (31.0-37.0); MONO # 1.6 (0.1-0.6); MONO % 24.2 % (1.0-6.0); RBC 3.81 10^6/uL (3.5-6.1); RED CELL DISTRIBUTION WIDTH 14.6 % (11.5-14.5); WHITE BLOOD COUNT 6.4 10^3/uL (4.5-11.0)
[2018-09-26 07:53] LABS: ALBUMIN 3.2 g/dL (3.0-4.8); ALT/SGPT 30 U/L (7-56); AST/SGOT 22 U/L (14-36); BLOOD UREA NITROGEN 12 mg/dL (7-21); CALCIUM 8.7 mg/dL (8.4-10.5); GFR NON-AFRICAN AMERICAN > 60; HDL CHOLESTEROL 18 mg/dL (29-60)
[2018-09-26 08:03] LABS: LDL CHOLESTEROL 75 mg/dL (0-129)
[2018-09-26] MEDS: Vancomycin 1gm in NS 250ml 1 GM/250 ML BAG IVPB SCH (09:43)
[2018-09-26] MEDS: Levothyroxine 100 MCG TAB PO SCH (09:44)
--- NOTE | 2018-09-26 13:41 | CP.PCM.PN ---
<Meño Rayo - Last Filed: 09/26/18 13:31> Subjective - Date & Time of Evaluation Date of Evaluation: 09/26/18 Time of Evaluation: 13:31 - Subjective Subjective: Podiatry progress note for attending Dr. Melissa: 82 year old female patient seen and evaluated in the bedside for pain, redness, bruising and swelling in her right foot and ankle. Patient states that doesn't have any pain in her right foot now. Patient denies any overnight shortness of breath, fevers, chills, nausea, vomiting, diarrhea, trauma recently. She denies any other pedal complaint at this time. Patient was seen ambulating without the surgical shoes Objective - Vital Signs/Intake and Output Vital Signs (last 24 hours): Temp Pulse Resp BP Pulse Ox 98.1 F 69 20 110/64 94 L 09/25/18 14:00 09/26/18 09:43 09/25/18 14:00 09/26/18 09:44 09/25/18 14:00 Intake and Output: 09/26/18 09/26/18 06:59 18:59 Intake Total 360 Balance 360 - Medications Medications: Current Medications Amlodipine Besylate (Norvasc) 10 mg PO DAILY [facility] Last Admin: 09/26/18 09:44 Dose: 10 mg Atorvastatin Calcium (Lipitor) 10 mg PO DIN [facility] Last Admin: 09/24/18 17:09 Dose: 10 mg Ferrous Sulfate (Feosol) 324 mg PO BID [facility] Last Admin: 09/26/18 09:44 Dose: 324 mg Vancomycin HCl (Vancomycin 1gm) 1 gm in 250 mls @ 167 mls/hr IVPB Q12H [facility]; Protocol Last Admin: 09/26/18 09:43 Dose: 167 mls/hr Cefepime HCl (Maxipime 1gm) 1 gm in 100 mls @ 100 mls/hr IVPB Q8 [facility]; Protocol Last Admin: 09/26/18 05:53 Dose: 100 mls/hr Levothyroxine Sodium (Synthroid) 100 mcg PO DAILY [facility] Last Admin: 09/26/18 09:44 Dose: 100 mcg Lisinopril (Zestril) 2.5 mg PO DAILY [facility] Last Admin: 09/26/18 09:43 Dose: 2.5 mg - Labs Labs: 09/26/18 07:20 09/26/18 07:20 PT 14.8 SECONDS (9.4-12.5) H 09/24/18 07:40 INR 1.28 09/24/18 07:40 APTT 29.6 Seconds (25.1-36.5) 09/24/18 07:40 - Constitutional Appears: Well, Non-toxic, No Acute Distress - Head Exam Head Exam: ATRAUMATIC, NORMOCEPHALIC - Extremities Exam Additional comments: R LE focused exam: UNNA boot to the RLE was C/D/I Vasc: Cap refill < 3 sec to all digits. Neuro: Gross and protective sensations are intact. Derm: 1st toeswound covered with dry scab surrounded by small area or erythema. no drainage noted. MSK: Mild Pain on palpating the Right perimalleolar area. Pain with ROM of the R foot and ankle. Pain on palpating the R foot. Muscle power intact to all groups 5/5 b/l. - Neurological Exam Neurological Exam: Alert, Awake, Oriented x3 - Psychiatric Exam Psychiatric exam: Normal Affect, Normal Mood Assessment and Plan - Assessment and Plan (Free Text) Assessment: 83 y/o F patient seen and evaluated in the bedside for Right foot and ankle pain, redness, bruising and swelling in her right foot and ankle (?? cellulitis or sprain). Plan: - Patient seen and evaluated at the bedside with Dr. Melissa - Plan discussed in details with attending Dr. Melissa - Charts, labs and vitals reviewed: Afebrile, no leukocytosis - R 3 views foot x-ray; official report Hallux valgus. - R 3 views ankle x-ray; Official report no osseous anomalies. - R venous duplex; No evidence of DVT. - R LE CT scan; No evidence of fractures, R TN joint degenerative changes. - R foot and ankle MRI; subcutaneous edema over dorsum over foot with no evidence of osteomyelitis. - Elevated ESR 63 and CRP 154.4 noted. - Keep R UNNA boot C/D/I - Continue RICE protocol. - Patient can bear weight as tolerated to the RLE. - Patient instructed to ambulate in the surgical shoes all the times. - Continue IV abx as per ID. - Patient to be evaluated for TCU transfer. - Podiatry will continue to follow up the patient while in house. <Anyi Melissa - Last Filed: 09/27/18 14:52> Objective - Vital Signs/Intake and Output Vital Signs (last 24 hours): Temp Pulse Resp BP Pulse Ox 98.6 F 65 18 109/62 100 09/26/18 14:00 09/26/18 14:00 09/26/18 14:00 09/26/18 14:00 09/26/18 14:00 - Labs Labs: 09/26/18 07:20 09/26/18 07:20 PT 14.8 SECONDS (9.4-12.5) H 09/24/18 07:40 INR 1.28 09/24/18 07:40 APTT 29.6 Seconds (25.1-36.5) 09/24/18 07:40 Attending/Attestation - Attestation I have personally seen and examined this patient.: Yes I have fully participated in the care of the patient.: Yes I have reviewed all pertinent clinical information, including history, physical exam and plan: Yes
--- NOTE | 2018-09-26 13:46 | CP.PCM.DIS ---
<Catrachita Judd - Last Filed: 09/27/18 13:28> Provider - Provider Date of Admission: 09/23/18 16:00 Attending physician: Jarrett Boo MD Primary care physician: Dr. Brunson Consults: 09/23/18 16:09 Physician Consult Stat Comment: Consulting Provider: Carlos Calvillo Consulting Physician: Carlos Calvillo Reason for Consult: cellulitis, foot/leg 09/23/18 16:10 Physician Consult Stat Comment: Consulting Provider: Anyi Melissa Consulting Physician: Anyi Melissa Reason for Consult: cellulitis, foot wound, foot 09/24/18 14:18 Case Management Referral Routine Comment: pls reach out daughter Alis [phone] if need Physician Instructions: Reason For Exam: d/c plan to [facility] when patient is medically optimize Reason for Referral: Discharge Planning 09/25/18 16:39 TCU [Evaluation for TRCU] Routine Comment: Physician Instructions: Reason For Exam: iv antbx, strengthening Time Spent in preparation of Discharge (in minutes): 45 Hospital Course - Lab Results Lab Results: Micro Results 09/23/18 13:00 Blood Blood Culture - Preliminary NO GROWTH AFTER 3 DAYS 09/23/18 12:40 Blood Blood Culture - Preliminary NO GROWTH AFTER 3 DAYS 09/24/18 15:31 Urine,Clean Catch Urine Culture - Final No Growth (<1,000 CFU/ML) Most Recent Lab Values WBC 6.4 10^3/uL (4.5-11.0) 09/26/18 07:20 RBC 3.81 10^6/uL (3.5-6.1) 09/26/18 07:20 Hgb 11.2 g/dL (12.0-16.0) L 09/26/18 07:20 Hct 36.0 % (36.0-48.0) 09/26/18 07:20 MCV 94.5 fl (80.0-105.0) 09/26/18 07:20 MCH 29.4 pg (25.0-35.0) 09/26/18 07:20 MCHC 31.1 g/dl (31.0-37.0) 09/26/18 07:20 RDW 14.6 % (11.5-14.5) H 09/26/18 07:20 Plt Count 166 10^3/uL (120.0-450.0) 09/26/18 07:20 MPV 11.0 fl (7.0-11.0) 09/26/18 07:20 Gran % 57.5 % (50.0-68.0) 09/26/18 07:20 Lymph % (Auto) 16.1 % (22.0-35.0) L 09/26/18 07:20 Fleming % (Auto) 24.2 % (1.0-6.0) H 09/26/18 07:20 Eos % (Auto) 2.0 % (1.5-5.0) 09/26/18 07:20 Baso % (Auto) 0.2 % (0.0-3.0) 09/26/18 07:20 Gran # 3.69 (1.4-6.5) 09/26/18 07:20 Lymph # (Auto) 1.0 (1.2-3.4) L 09/26/18 07:20 Fleming # (Auto) 1.6 (0.1-0.6) H 09/26/18 07:20 Eos # (Auto) 0.1 (0.0-0.7) 09/26/18 07:20 Baso # (Auto) 0.01 K/mm3 (0.0-2.0) 09/26/18 07:20 Neutrophils % (Manual) 63 % (50.0-70.0) 09/25/18 06:35 Band Neutrophils % 1 % (0-2) 09/25/18 06:35 Lymphocytes % (Manual) 25 % (22.0-35.0) 09/25/18 06:35 Monocytes % (Manual) 8 % (1.0-6.0) H 09/25/18 06:35 Eosinophils % (Manual) 2 % (0.0-3.0) 09/25/18 06:35 Basophils % (Manual) 1 % (0.0-1.0) 09/25/18 06:35 Platelet Evaluation Normal (NORMAL) 09/25/18 06:35 ESR 63 mm/hr (0.0-20.0) H 09/24/18 07:40 PT 14.8 SECONDS (9.4-12.5) H 09/24/18 07:40 INR 1.28 09/24/18 07:40 APTT 29.6 Seconds (25.1-36.5) 09/24/18 07:40 Sodium 139 mmol/L (132-148) 09/26/18 07:20 Potassium 4.0 mmol/L (3.6-5.0) 09/26/18 07:20 Chloride 108 mmol/L (98-107) H 09/26/18 07:20 Carbon Dioxide 27 mmol/L (21-33) 09/26/18 07:20 Anion Gap 9 (10-20) L 09/26/18 07:20 BUN 12 mg/dL (7-21) 09/26/18 07:20 Creatinine 0.6 mg/dl (0.7-1.2) L 09/26/18 07:20 Est GFR ( Amer) > 60 09/26/18 07:20 Est GFR (Non-Af Amer) > 60 09/26/18 07:20 Random Glucose 97 mg/dL (70-110) 09/26/18 07:20 Hemoglobin A1c 5.6 % (4.2-6.5) 09/24/18 11:07 Calcium 8.7 mg/dL (8.4-10.5) 09/26/18 07:20 Phosphorus 3.4 mg/dL (2.5-4.5) 09/24/18 07:40 Magnesium 2.1 mg/dL (1.7-2.2) 09/24/18 07:40 Iron 30 ug/dL (45-180) L 09/25/18 07:00 TIBC 262 ug/dL (265-497) L 09/25/18 07:00 % Saturation 11 % (20-55) L 09/25/18 07:00 Transferrin 184.78 mg/dL (206-381) L 09/25/18 07:00 Ferritin 45.6 ng/mL 09/25/18 07:00 Total Bilirubin 0.6 mg/dL (0.2-1.3) 09/26/18 07:20 AST 22 U/L (14-36) 09/26/18 07:20 ALT 30 U/L (7-56) 09/26/18 07:20 Alkaline Phosphatase 76 U/L (38-126) 09/26/18 07:20 Total Creatine Kinase < 20 U/L (35-230) L 09/25/18 07:00 C-Reactive Protein 154.40 mg/L (0.0-9.9) H 09/24/18 07:40 Total Protein 6.4 g/dL (5.8-8.3) 09/26/18 07:20 Albumin 3.2 g/dL (3.0-4.8) 09/26/18 07:20 Globulin 3.3 gm/dL 09/26/18 07:20 Albumin/Globulin Ratio 1.0 (1.1-1.8) L 09/26/18 07:20 Triglycerides 102 mg/dL (35-160) 09/26/18 07:20 Cholesterol 97 mg/dL (130-200) L 09/26/18 07:20 LDL Cholesterol Direct 75 mg/dL (0-129) 09/26/18 07:20 HDL Cholesterol 18 mg/dL (29-60) L 09/26/18 07:20 Vitamin B12 666 pg/mL (239-931) 09/25/18 07:00 Folate > 20.0 ng/mL 09/25/18 07:00 Procalcitonin 0.25 NG/ML (0.19-0.49) 09/24/18 07:40 Urine Color Yellow (YELLOW) 09/24/18 15:31 Urine Appearance Clear (CLEAR) 09/24/18 15:31 Urine pH 7.0 (4.7-8.0) 09/24/18 15:31 Ur Specific Kerrick 1.015 (1.005-1.035) 09/24/18 15:31 Urine Protein Negative mg/dL (<30 mg/dL) 09/24/18 15:31 Urine Glucose (UA) Negative mg/dL (NEGATIVE) 09/24/18 15:31 Urine Ketones Negative mg/dL (NEGATIVE) 09/24/18 15:31 Urine Blood Large (NEGATIVE) H 09/24/18 15:31 Urine Nitrate Negative (NEGATIVE) 09/24/18 15: Urine Bilirubin Negative (NEGATIVE) 09/24/18 15:31 Urine Urobilinogen 1.0 E.U./dL (<1 E.U./dL) H 09/24/18 15:31 Ur Leukocyte Esterase Trace Pal/uL (NEGATIVE) H 18 15:31 Urine RBC 2 - 5 /hpf (0-2) 18 15:31 Urine WBC 1 - 3 /hpf (0-6) 18 15:31 Ur Epithelial Cells 0 - 2 /hpf (0-5) 18 15:31 Urine Bacteria Neg (NEG) 09/24/18 15:31 - Hospital Course Hospital Course: Upon Admission 83yo female PMHx HTN, osteopenia, hypothyroidism, and dementia presents with right foot pain for 3 days. Patient reports she had a mechanical fall and tripped on the sidewalk when she hurt her right foot. As per daughter patient was walking with her and was unable to ambulate well and had trouble climbing her stairs at home. Daughter reported the patient's R foot was red, swollen and tender to touch and the decision was made to call EMS. Hospital Course Patient was admitted to med/surg for further management of suspected cellulitis. In light of patient's fall, head CT was ordered which was unremarkable for acute hemorrhage. In light of patient's unilateral RLE pain, swelling, and erythema, venous dopplers were ordered which was negative for DVT in the RLE. ID and Podiatry were consulted. ID started patient on IV Cefepime and Vancomycin. Patient's x-rays of R ankle showed no fracture and R foot showed mild moderate hallux valgus. Podiatry placed a posterior splint to his RICE and patient and daughter were educated on maintaining RICE protocol. CT RLE revealed no fracture and R ankle MRI showed some soft tissue swelling. Arterial studies were unable to be carried out due to splint. At first patient was placed on non-weight bearing restrictions, however, she continued to ambulate to the bathroom and denied any pain on ambulation or on physical exam. Patient's anemia work up revealed SWETHA and she was started on PO iron. As patient improved, her posterior splint and modified Coon compression was discontinued and an UNNA boot with a lyaer of wibrol and Coban was applied by podiatry. Patient's ambulation status was changed to bearing weight as tolerated. Physical therapy deemed patient a suitable candidate for [facility] vs TCU. Patient's daughter Alis was spoken to in great detail regarding patient's disposition and all questions and concerns were answered. Patient was approved to be discharged to [facility] and family was amenable to decision and discharge. Upon Discharge Patient was discharged to [facility] sub acute rehab for continued care and strengthening with physical therapy. She was prescribed the following medications: -Vancomycin 1gm IV every 12 hours for 5 more days -Cefepime 1gm IV every 8 hours for 5 more days -Feosol 324mg by mouth every 12 hours -Norvasc 10mg by mouth daily -Lipitor 10mg by mouth every night -Lisinopril 2.5mg by mouth daily -Synthroid 100mcg by mouth daily Patient was to have RICE protocol applied to her RLE and to bear weight as tolerated and to wear the surgical shoe at all times on her RLE. Patient and family were told to follow up with her PMD Dr. Brunson within 7 days of discharge from [facility] and if symptoms returned she was to go to her nearest Emergency Dept. Patient and family voiced understanding and agreement to plan. Please note this is a discharge summary. For full hospital course please refer to EMR. Discharge Exam - Head Exam Head Exam: ATRAUMATIC, NORMOCEPHALIC - Eye Exam Eye Exam: EOMI, Normal appearance. absent: Conjunctival injection, Scleral icterus - ENT Exam ENT Exam: Mucous Membranes Moist - Neck Exam Neck exam: Full Rom - Respiratory Exam Respiratory Exam: Clear to PA & Lateral, NORMAL BREATHING PATTERN. absent: Accessory Muscle Use, Rales, Rhonchi, Wheezes, Respiratory Distress - Cardiovascular Exam Cardiovascular Exam: +S1, +S2 - GI/Abdominal Exam GI & Abdominal Exam: Normal Bowel Sounds, Soft. absent: Firm, Guarding, Rigid, Tenderness - Rectal Exam Rectal Exam: Deferred - Extremities Exam Additional comments: RLE wrapped - Neurological Exam Neurological exam: Alert - Psychiatric Exam Psychiatric exam: Normal Affect, Normal Mood - Skin Skin Exam: Dry, Normal Color, Warm Discharge Plan - Discharge Medications Prescriptions: RX: Cefepime 1gm in NS 100ml [Maxipime 1gm] 1 gm IVPB Q8H 5 Days bag RX: Vancomycin 1 GM [Vancomycin 1GM in Normal Saline Addvantage] 1 gm IVPB Q12 5 Days bag - Follow Up Plan Condition: FAIR Disposition: REHAB FACILITY/REHAB UNIT Instructions: Anemia of Chronic Disease, Hypokalemia (DC), Cellulitis (DC), Cellulitis (GEN) Additional Instructions: You are being discharged to [facility] acute rehab for continued care and strengthening with physical therapy. You will be taking the following medications as prescribed: -Vancomycin 1gm IV every 12 hours for 5 more days -Cefepime 1gm IV every 8 hours for 5 more days -Feosol 324mg by mouth every 12 hours -Norvasc 10mg by mouth daily -Lipitor 10mg by mouth every night -Lisinopril 2.5mg by mouth daily -Synthroid 100mcg by mouth daily Please continue resting, icing, compressing, and elevating your Right leg. You can bear weight on your right leg as it is tolerated. Please walk in the surgical shoe at all times. Please follow up with your primary care doctor Dr. Brunson within 7 days of discharge from [facility] If symptoms return or worsen please visit your nearest Emergency Department. <Jarrett Boo - Last Filed: 09/27/18 20:12> Provider - Provider Date of Admission: 09/23/18 16:00 Attending physician: Jarrett Boo MD Consults: 09/23/18 16:09 Physician Consult Stat Comment: Consulting Provider: Carlos Calvillo Consulting Physician: Carlos Calvillo Reason for Consult: cellulitis, foot/leg 09/23/18 16:10 Physician Consult Stat Comment: Consulting Provider: Anyi Melissa Consulting Physician: Anyi Melissa Reason for Consult: cellulitis, foot wound, foot 09/24/18 14:18 Case Management Referral Routine Comment: pls reach out daughter Alis [phone] if need Physician Instructions: Reason For Exam: d/c plan to [facility] when patient is medically optimize Reason for Referral: Discharge Planning 09/25/18 16:39 TCU [Evaluation for TRCU] Routine Comment: Physician Instructions: Reason For Exam: iv antbx, strengthening Hospital Course - Lab Results Lab Results: Micro Results 09/23/18 13:00 Blood Blood Culture - Preliminary NO GROWTH AFTER 4 DAYS 09/23/18 12:40 Blood Blood Culture - Preliminary NO GROWTH AFTER 4 DAYS 09/24/18 15:31 Urine,Clean Catch Urine Culture - Final No Growth (<1,000 CFU/ML) Most Recent Lab Values WBC 6.4 10^3/uL (4.5-11.0) 09/26/18 07:20 RBC 3.81 10^6/uL (3.5-6.1) 09/26/18 07:20 Hgb 11.2 g/dL (12.0-16.0) L 09/26/18 07:20 Hct 36.0 % (36.0-48.0) 09/26/18 07:20 MCV 94.5 fl (80.0-105.0) 09/26/18 07:20 MCH 29.4 pg (25.0-35.0) 09/26/18 07:20 MCHC 31.1 g/dl (31.0-37.0) 09/26/18 07:20 RDW 14.6 % (11.5-14.5) H 09/26/18 07:20 Plt Count 166 10^3/uL (120.0-450.0) 09/26/18 07:20 MPV 11.0 fl (7.0-11.0) 09/26/18 07:20 Gran % 57.5 % (50.0-68.0) 09/26/18 07:20 Lymph % (Auto) 16.1 % (22.0-35.0) L 09/26/18 07:20 Fleming % (Auto) 24.2 % (1.0-6.0) H 09/26/18 07:20 Eos % (Auto) 2.0 % (1.5-5.0) 09/26/18 07:20 Baso % (Auto) 0.2 % (0.0-3.0) 09/26/18 07:20 Gran # 3.69 (1.4-6.5) 09/26/18 07:20 Lymph # (Auto) 1.0 (1.2-3.4) L 09/26/18 07:20 Fleming # (Auto) 1.6 (0.1-0.6) H 09/26/18 07:20 Eos # (Auto) 0.1 (0.0-0.7) 09/26/18 07:20 Baso # (Auto) 0.01 K/mm3 (0.0-2.0) 09/26/18 07:20 Neutrophils % (Manual) 63 % (50.0-70.0) 09/25/18 06:35 Band Neutrophils % 1 % (0-2) 09/25/18 06:35 Lymphocytes % (Manual) 25 % (22.0-35.0) 09/25/18 06:35 Monocytes % (Manual) 8 % (1.0-6.0) H 09/25/18 06:35 Eosinophils % (Manual) 2 % (0.0-3.0) 09/25/18 06:35 Basophils % (Manual) 1 % (0.0-1.0) 09/25/18 06:35 Platelet Evaluation Normal (NORMAL) 09/25/18 06:35 ESR 63 mm/hr (0.0-20.0) H 09/24/18 07:40 PT 14.8 SECONDS (9.4-12.5) H 09/24/18 07:40 INR 1.28 09/24/18 07:40 APTT 29.6 Seconds (25.1-36.5) 09/24/18 07:40 Sodium 139 mmol/L (132-148) 09/26/18 07:20 Potassium 4.0 mmol/L (3.6-5.0) 09/26/18 07:20 Chloride 108 mmol/L (98-107) H 09/26/18 07:20 Carbon Dioxide 27 mmol/L (21-33) 09/26/18 07:20 Anion Gap 9 (10-20) L 09/26/18 07:20 BUN 12 mg/dL (7-21) 09/26/18 07:20 Creatinine 0.6 mg/dl (0.7-1.2) L 09/26/18 07:20 Est GFR ( Amer) > 60 09/26/18 07:20 Est GFR (Non-Af Amer) > 60 09/26/18 07:20 Random Glucose 97 mg/dL (70-110) 09/26/18 07:20 Hemoglobin A1c 5.6 % (4.2-6.5) 09/24/18 11:07 Calcium 8.7 mg/dL (8.4-10.5) 09/26/18 07:20 Phosphorus 3.4 mg/dL (2.5-4.5) 09/24/18 07:40 Magnesium 2.1 mg/dL (1.7-2.2) 09/24/18 07:40 Iron 30 ug/dL (45-180) L 09/25/18 07:00 TIBC 262 ug/dL (265-497) L 09/25/18 07:00 % Saturation 11 % (20-55) L 09/25/18 07:00 Transferrin 184.78 mg/dL (206-381) L 09/25/18 07:00 Ferritin 45.6 ng/mL 09/25/18 07:00 Total Bilirubin 0.6 mg/dL (0.2-1.3) 09/26/18 07:20 AST 22 U/L (14-36) 09/26/18 07:20 ALT 30 U/L (7-56) 09/26/18 07:20 Alkaline Phosphatase 76 U/L (38-126) 09/26/18 07:20 Total Creatine Kinase < 20 U/L (35-230) L 09/25/18 07:00 C-Reactive Protein 154.40 mg/L (0.0-9.9) H 09/24/18 07:40 Total Protein 6.4 g/dL (5.8-8.3) 09/26/18 07:20 Albumin 3.2 g/dL (3.0-4.8) 09/26/18 07:20 Globulin 3.3 gm/dL 09/26/18 07:20 Albumin/Globulin Ratio 1.0 (1.1-1.8) L 09/26/18 07:20 Triglycerides 102 mg/dL (35-160) 09/26/18 07:20 Cholesterol 97 mg/dL (130-200) L 09/26/18 07:20 LDL Cholesterol Direct 75 mg/dL (0-129) 09/26/18 07:20 HDL Cholesterol 18 mg/dL (29-60) L 09/26/18 07:20 Vitamin B12 666 pg/mL (239-931) 09/25/18 07:00 Folate > 20.0 ng/mL 09/25/18 07:00 Procalcitonin 0.25 NG/ML (0.19-0.49) 09/24/18 07:40 Urine Color Yellow (YELLOW) 09/24/18 15:31 Urine Appearance Clear (CLEAR) 09/24/18 15:31 Urine pH 7.0 (4.7-8.0) 09/24/18 15:31 Ur Specific Kerrick 1.015 (1.005-1.035) 09/24/18 15:31 Urine Protein Negative mg/dL (<30 mg/dL) 09/24/18 15:31 Urine Glucose (UA) Negative mg/dL (NEGATIVE) 09/24/18 15:31 Urine Ketones Negative mg/dL (NEGATIVE) 09/24/18 15:31 Urine Blood Large (NEGATIVE) H 09/24/18 15:31 Urine Nitrate Negative (NEGATIVE) 09/24/18 15:31 Urine Bilirubin Negative (NEGATIVE) 09/24/18 15:31 Urine Urobilinogen 1.0 E.U./dL (<1 E.U./dL) H 09/24/18 15:31 Ur Leukocyte Esterase Trace Pal/uL (NEGATIVE) H 09/24/18 15:31 Urine RBC 2 - 5 /hpf (0-2) 09/24/18 15:31 Urine WBC 1 - 3 /hpf (0-6) 09/24/18 15:31 Ur Epithelial Cells 0 - 2 /hpf (0-5) 09/24/18 15:31 Urine Bacteria Neg (NEG) 09/24/18 15:31 - Hospital Course Hospital Course: Pt seen and examined. I reviewed the note of the medical chief technician and I agree with the note including the assessment and plan. I reviewed the medications and last labs. Pt with fall at home. She will be going to [facility] Daughter was informe d. She had a R foot cellulitis. She was treated with IV Abx and it had improved. She has mild Dementia- Alzh and is as risk of delerium. HTN is controlled with Norvasc and HTN. D/C.
[2018-09-26 15:20] VITALS: BP 109/62; PULSE 65; RESP 18; TEMP 98.6; O2SAT 100
--- NOTE | 2018-09-26 18:57 | PN ---
DATE: 09/26/2018 SUBJECTIVE: The patient is seen in bed, in no acute distress, and nontoxic. PHYSICAL EXAMINATION: VITAL SIGNS: Temperature is 98, blood pressure is 109/60, respiratory rate 20, and heart rate of 65. HEENT: Unremarkable. NECK: Supple. LUNGS: Decreased breath sounds. HEART: Normal S1 and S2. ABDOMEN: Soft. LABORATORY DATA: Reveals a white count of 6.4, hemoglobin of 11, and platelets of 166. Chemistry reveals BUN of 12, creatinine 0.6, and procalcitonin is 0.25. Urinalysis is noted. Microbiology reveals the patient's blood cultures and urine cultures are negative. Review of orders reveals the patient to be on cefepime and vancomycin. ASSESSMENT AND PLAN: This is an 83-year-old female who was seen earlier this morning in room 563, bed 2 with her right foot cellulitis. No evidence of osteomyelitis at MRI, on day #3 of vancomycin and cefepime, would complete 7 to 10 days with soft tissue infection in a patient with hypertension, osteopenia and vancomycin trough level and chemistry should be followed closely. Carlos Calvillo MD
== END 2018-09-26 22:18 | DRG 603 ==
LOC: ED 11:09 → ERH 16:00 → 5RSO 21:04 → 5RNO 09-26 07:23
PROVIDERS: ADMIT Internal Medicine Nephrology; ATTEND Internal Medicine Nephrology
DX: L03.115 Cellulitis of right lower limb (principal); I10 Essential (primary) hypertension; E87.6 Hypokalemia; D50.9 Iron deficiency anemia, unspecified; E03.9 Hypothyroidism, unspecified; G30.9 Alzheimer's disease, unspecified; F02.80 Dementia in other diseases classified elsewhere, unspecified severity, without behavioral disturbance, psychotic disturbance, mood disturbance, and anxiety; M81.0 Age-related osteoporosis without current pathological fracture; M79.89 Other specified soft tissue disorders; M20.11 Hallux valgus (acquired), right foot; M79.671 Pain in right foot; E78.5 Hyperlipidemia, unspecified; H91.90 Unspecified hearing loss, unspecified ear; R26.9 Unspecified abnormalities of gait and mobility; Z91.19 Patient's noncompliance with other medical treatment and regimen